=== PATIENT | female | born 2000 | race Caucasian/White ===

== ENCOUNTER 2019-10-08 16:47 | Emergency (ER) | payer OTHER, SELFPAY ==
--- NOTE | ~2019-10-08 | CT_ITS ---
EXAMINATION: CT abdomen pelvis w con DATE: 10/08/2019 18:44 INDICATION: Right lower quadrant abdominal pain. TECHNIQUE: Computed tomography (CT) of the abdomen and pelvis was performed with 100 mL Omnipaque 350 intravenous contrast. Automated exposure control and iterative reconstruction technique were employe d. The dose-length product was 230.10 mGy-cm. COMPARISON: None. FINDINGS: The visualized portions of the lung bases are clear without pneumonia or pleural effusion. The heart size is normal. No pericardial effusion. The liver, gallbladder, spleen, pancreas, adrenal glands, and right kidney are normal. There is a 1.3 cm cyst in left kidney. There are no dilated loop s of bowel. The appendix is normal. There are no pathologically enlarged lymph nodes. There is a smal l volume of pelvic ascites. There is a 1.6 cm corpus luteum cyst in right ovary. The bones are unrema rkable. IMPRESSION: 1. Small volume of pelvic ascites. Reviewed, dictated and finalized at location A.
[2019-10-08 17:05] VITALS: BP 127/81; PULSE 84; RESP 16; TEMP 36.8; O2SAT 100
[2019-10-08] MEDS: SODIUM CHLORIDE 0.9% IV 1,000 ML 999 ML IV CONT (17:29)
[2019-10-08] MEDS: ONDANSETRON INJ 4 MG/2 ML VIAL IV PUSH (17:30)
[2019-10-08 17:39] LABS: Basophils Absolute Auto 0.1 K/mm3 (0.0-0.1); Basophils Percent Auto 0.7 % (0.2-1.2); Eosinophils Absolute Auto 0.1 K/mm3 (0-0.3); Eosinophils Percent Auto 1.2 % (0-4.4); Hematocrit 47.5 % (37.0-47.0); Hemoglobin 16.2 g/dL (12.0-15.0); Immature Granulocyte Absolute 0.02 K/mm3 (0.00-0.031); Immature Granulocyte Percent A 0.3 % (0-0.5); Lymphocytes Absolute Auto 2.88 K/mm3 (0.9-3.2); Lymphocytes Percent Auto 39.7 % (18.3-44.2); Mean Corpuscular HGB Conc 34.1 g/dl (32-36); Mean Corpuscular Hemoglobin 31.2 pg (26-34); Mean Corpuscular Volume 91.3 fl (80-100); Monocytes Absolute Auto 0.6 K/mm3 (0.1-0.6); Monocytes Percent Auto 7.6 % (2.6-8.5); Neutrophils Absolute Auto 3.7 K/mm3 (1.3-6.7); Neutrophils Percent Auto 50.5 % (45.5-73.1); Platelet Count Result 361 k/mm3 (150-375); Red Cell Distribution Width 12.3 % (11.5-14.5); White Blood Count 7.3 K/mm3 (4.5-10.0)
[2019-10-08 17:46] LABS: Add Urine Microscopic? YES; Appearance Urine Cloudy (Clear); Bacteria Urine Trace /hpf; Bilirubin Urine Negative (Negative); Blood Urine Negative (Negative); Color Urine Yellow (Yellow); Glucose Urine UA Negative (Negative); Ketones Urine Negative (Negative); Leukocyte Esterase Ur 2+ LEU/UL (Negative); Mucus Urine Rare /lpf; Nitrate Urine Negative (Negative); Protein Urine Negative (Negative); Specific Grav Ur 1.017 (1.001-1.035); Squamous Epithelial Cell Urine Many /hpf (Few); Urobilinogen Urine Negative mg/dL (<2.0)
[2019-10-08 17:51] LABS: Alanine Aminotransferase 11 U/L (4-35); Albumin Level 5.3 g/dL (3.5-5.1); Alkaline Phosphatase 53 U/L (38-126); Aspartate Amino Transferase 23 U/L (14-36); Blood Urea Nitrogen 11 mg/dL (7-17); Calcium 9.9 mg/dL (8.4-10.2); Carbon Dioxide 26 mmol/L (22-30); Chloride 101 mmol/L (98-107); Estimated CRCL calculation 114 ml/min; Estimated Glomerular Filt Rate > 60; Glucose 89 mg/dL (65-105); Lipase 66 U/L (23-300); Potassium 3.7 mmol/L (3.4-5.0); Sodium 138 mmol/L (137-145)
--- NOTE | 2019-10-08 19:11 | ED.ABDPAIN ---
HPI - Abdominal Pain General Chief Complaint: Abdominal Pain Stated Complaint: pelvic pain Time Seen by Provider: 10/08/19 17:11 Source: patient and family Mode of arrival: ambulatory Limitations: no limitations History of Present Illness HPI narrative: 19-year-old with a history of ovarian cysts here with complaints of right lower abdominal pain for past few weeks. Patient states that she called her primary doctor who recommended to go to the emergency room to rule out appendicitis. Patient denies any fever or chills. No history of nausea or vomiting. She states she is presently on her menstrual period . She denies any urinary symptoms. MD elicited complaint: abdominal pain Pertinent past history: none Onset (ago): week(s) (2) Pain Consistency: constant Location: RLQ Quality: cramping Radiation: none Migration to: no migration Exacerbating factors: nothing Relieving factors: nothing Related Data Date of Last Menstrual Period: 10/08/19 Patient : No Home Medications Medication Instructions Recorded Confirmed No Home Medications 10/08/19 10/08/19 Allergies Allergy/AdvReac Type Severity Reaction Status Date / Time No Known Allergies Allergy Unverified 10/23/17 18:07 Review of Systems Review of Systems: All systems reviewed & are unremarkable except as noted in HPI and below Constitutional: Constitutional: Reports as per HPI Eyes: Eyes: Reports no additional eye complaints ENT: Reports system reviewed and no additional complaints, except as documented Cardiovascular: Cardiovascular: Reports no additional cardiovascular complaints Respiratory: Respiratory: Reports no additional respiratory complaints Gastrointestinal: Gastrointestinal: Reports as per HPI Musculoskeletal: Musculoskeletal: Reports no additional musculoskeletal complaints Integumentary/Breasts: Skin/Breast: Reports system reviewed and no additional complaints, except as docu Neurologic: Reports system reviewed and no additional complaints, except as documented Exam Narrative: Exam Narrative: GENERAL: Well-appearing, well-nourished, and in no acute distress. HEAD: Normocephalic, atraumatic. EYES: PERRLA and EOMI. ENT: Nares clear, no rhinorrhea or epistaxis. Mucous membranes moist. NECK: Supple. CHEST: Clear to auscultation. No respiratory distress. HEART: Regular rate and rhythm. No murmur heard. Normal peripheral pulses. ABDOMEN: Soft, mild tenderness in the RLQ , nondistended, normal active bowel sounds. EXTREMITIES: Normal range of motion. No edema. SKIN: Warm, dry, no rash. NEURO: No focal deficits. Alert and oriented x3. PSYCH: Normal mood and affect. Course Course Emergency Course: Patient had a vasovagal episode while she was getting blood drawn. I laid her flat give her a cold rag within few minutes she started feeling better. Also gave her a liter of fluid. I reviewed her lab work and CT findings with her mother as well. Patient states that she is feeling a lot better. I advised her to follow-up with her primary doctor. Vital Signs Vital signs: Vital Signs Temperature 36.8 C 10/08/19 17:05 Pulse Rate 84 10/08/19 17:05 Respiratory Rate 16 10/08/19 17:05 Blood Pressure 127/81 10/08/19 17:05 Pulse Oximetry 100 10/08/19 17:05 Temperature 36.8 C 10/08/19 17:05 Pulse Rate 84 10/08/19 17:05 Respiratory Rate 16 10/08/19 17:05 Blood Pressure 127/81 10/08/19 17:05 Pulse Oximetry 100 10/08/19 17:05 MDM - Abdominal Pain Differential Diagnosis Differential diagnosis: Likely abdominal pain, acute appendicitis, endometriosis and gastroenteritis Medical Records Attestation: I reviewed the patient's medical records. Lab Data Result diagrams: 10/08/19 17:32 10/08/19 17:32 Labs: Lab Results 10/08/19 10/08/19 10/08/19 Range/Units 17:32 17:32 17:32 WBC 7.3 (4.5-10.0) K/mm3 RBC 5.20 (4.2-5.4) M/mm3 Hgb 16.2 H (12.0-15.0) g/dL Hc
[2019-10-08 20:03] VITALS: BP 120/77; PULSE 70; RESP 20; TEMP 36.7; O2SAT 98
== END 2019-10-08 20:04 | disposition home or self-care (01) ==
PROVIDERS: Emergency Provider Family Medicine; PCP Family Medicine
DX: R10.31 Right lower quadrant pain (principal)
CPT/HCPCS: 36415; 74177; 80053; 81001; 81025; 83690; 85025; 96361; 96374; 99284; J2405; J7030; Q9967

== ENCOUNTER 2020-03-30 14:58 | Emergency (ER) | payer OTHER, SELFPAY ==
[2020-03-30 15:00] VITALS: BP 139/84; PULSE 59; RESP 16; TEMP 36.3; O2SAT 100; O2SAT 99
--- NOTE | 2020-03-30 15:07 | ED.NAVMDI ---
HPI - Nausea/Vomiting/Diarrhea General Chief complaint: Nausea/Vomiting/Diarrhea Stated complaint: covid +, n/v, Time Seen by Provider: 03/30/20 15:05 History of Present Illness HPI Narrative: 20 yo female pregant at unknown gestational age presents to the ED for nausea and vomiting. She has had nausea and vomting for the past 4 days. Tolerating small amounts of fluid. Associated with moderate intemittent pelvic pain. LMP 02/07/2020. No care to this point. No vaginal bleeding discharge, dysuria, fever. Related Data Allergies Allergy/AdvReac Type Severity Reaction Status Date / Time No Known Allergies Allergy Verified 03/30/20 14:59 Review of Systems Review of Systems: All systems reviewed & are unremarkable except as noted in HPI and below (HPI and below) Constitutional: Constitutional: Denies fever(s) Cardiovascular: Cardiovascular: Denies chest pain Respiratory: Respiratory: Denies dyspnea Gastrointestinal: Gastrointestinal: Reports abdominal pain, Denies diarrhea, Reports nausea and Reports vomiting Genitourinary: Genitourinary: Denies abnormal vaginal bleeding, Denies hematuria, Denies dysuria, Reports pelvic pain and Denies vaginal discharge Musculoskeletal: Musculoskeletal: Denies back pain Neurologic: Denies dizziness PMFSH Past Medical History Medical History (Updated 03/31/20 @ 20:15 by James Brown MD) Healthy female adult Social History Social History (Updated 03/31/20 @ 20:16 by James Brown MD) Smoking status: Never smoker Gender identity (if verbalized by the patient): Female Exam Const: General: healthy appearing, no acute distress and alert Orientation/consciousness: patient oriented x3 HENMT: Head: normal to inspection Neck: Neck: normal visual inspection and no lymphadenopathy Chest: Chest palpation & inspection: no tenderness Resp: Effort & Inspection: normal respiratory effort Auscultation: clear to auscultation bilaterally, no rales, no rhonchi and no wheezes Cardio: Jugular venous distension: no JVD Rate: regular rate Rhythm: regular rhythm Heart sounds: no murmurs GI: Inspection: non-distended GI Palp: Yes Soft to palpation and Yes Tenderness to palpation present (GI) (suprapubic) Skin: General skin exam: normal color Neuro: General: patient oriented x3 and moves all extremities Speech: normal speech Extrem: General: no edema Psych: Appearance: well kempt Affect: normal affect Course Vital Signs Vital signs: Vital Signs Temperature 36.3 C L 03/30/20 15:00 Pulse Rate 59 L 03/30/20 15:00 Respiratory Rate 16 03/30/20 15:00 Blood Pressure 139/84 03/30/20 15:00 Pulse Oximetry 100 03/30/20 15:00 Temperature 36.3 C L 03/30/20 15:00 Pulse Rate 76 03/30/20 16:55 Respiratory Rate 16 03/30/20 16:55 Blood Pressure 130/70 03/30/20 16:55 Pulse Oximetry 98 03/30/20 16:55 Procedures Other Procedure Procedure 1: Other Procedure: Bedside ultrasound IUP seen Approximately 9 weeks by appearance FHR 164 No free pelvic fluid MDM - Nausea/Vomiting/Diarrhea MDM Narrative Medical decision making narrative: Reassuring bedside ultrasound and lab work. After the ultrasound she said that she would prefer to be discharged so she can go home and rest. Medical Records Attestation: I reviewed the patient's medical records. Lab Data Attestation: I reviewed the patient's lab results. Result diagrams: 03/30/20 15:47 03/30/20 15:47 Labs: Lab Results 03/30/20 03/30/20 03/30/20 Range/Units 15:47 15:47 15:47 WBC 6.9 (4.5-10.0) K/mm3 RBC 4.61 (4.2-5.4) M/mm3 Hgb 14.4 (12.0-15.0) g/dL Hct 41.4 (37.0-47.0) % MCV 89.8 (80-100) fl MCH 31.2 (26-34) pg MCHC 34.8 (32-36) g/dl RDW 11.9 (11.5-14.5) % Plt Count 279 (150-375) k/mm3 MPV 10.0 (7.4-10.4) fl Immature Gran % (Auto) 0.3 (0-0.5) % Neut % (Auto) 59.2
[2020-03-30 15:54] LABS: Basophils Percent Auto 0.3 % (0.2-1.2); Eosinophils Percent Auto 0.1 % (0-4.4); Hematocrit 41.4 % (37.0-47.0); Hemoglobin 14.4 g/dL (12.0-15.0); Immature Granulocyte Absolute 0.02 K/mm3 (0.00-0.031); Immature Granulocyte Percent A 0.3 % (0-0.5); Lymphocytes Absolute Auto 2.18 K/mm3 (0.9-3.2); Lymphocytes Percent Auto 31.7 % (18.3-44.2); Mean Corpuscular HGB Conc 34.8 g/dl (32-36); Mean Corpuscular Hemoglobin 31.2 pg (26-34); Mean Corpuscular Volume 89.8 fl (80-100); Monocytes Absolute Auto 0.6 K/mm3 (0.1-0.6); Monocytes Percent Auto 8.4 % (2.6-8.5); Neutrophils Absolute Auto 4.1 K/mm3 (1.3-6.7); Neutrophils Percent Auto 59.2 % (45.5-73.1); Platelet Count Result 279 k/mm3 (150-375); Red Blood Count 4.61 M/mm3 (4.2-5.4); Red Cell Distribution Width 11.9 % (11.5-14.5); White Blood Count 6.9 K/mm3 (4.5-10.0)
[2020-03-30 16:05] LABS: Alanine Aminotransferase 32 U/L (4-35); Albumin Level 4.7 g/dL (3.5-5.1); Alkaline Phosphatase 57 U/L (38-126); Anion Gap 10 mmol/L (8-16); Aspartate Amino Transferase 35 U/L (14-36); Bilirubin,Total 0.6 mg/dL (0.2-1.3); Blood Urea Nitrogen 7 mg/dL (7-17); Calcium 9.4 mg/dL (8.4-10.2); Carbon Dioxide 25 mmol/L (22-30); Chloride 101 mmol/L (98-107); Estimated CRCL calculation 134 ml/min; Estimated Glomerular Filt Rate > 60; Glucose 95 mg/dL (65-105); Lipase 67 U/L (23-300); Potassium 3.4 mmol/L (3.4-5.0); Sodium 136 mmol/L (137-145)
[2020-03-30] MEDS: DEXTROSE 5%/0.45% SOD CHL 1,000 ML 1000 ML IV CONT (16:18)
[2020-03-30] MEDS: METOCLOPRAMIDE HCL INJ 10 MG/2 ML VIAL IV PUSH (16:18)
[2020-03-30 16:52] LABS: Add Urine Microscopic? YES; Amorphous Sediment Urine Moderate; Appearance Urine Cloudy (Clear); Bacteria Urine 3+ /hpf; Bilirubin Urine Negative (Negative); Blood Urine Negative (Negative); Color Urine Yellow (Yellow); Glucose Urine UA Negative (Negative); Ketones Urine 1+ mg/dL (Negative); Leukocyte Esterase Ur Negative LEU/UL (Negative); Mucus Urine Few /lpf; Nitrate Urine Negative (Negative); Protein Urine 1+ mg/dL (Negative); Specific Grav Ur 1.026 (1.001-1.035); Squamous Epithelial Cell Urine Many /hpf (Few); Urobilinogen Urine Negative mg/dL (<2.0); WBC Urine 0-3 /hpf
[2020-03-30 16:55] VITALS: BP 130/70; PULSE 76; RESP 16; O2SAT 98
== END 2020-03-30 16:55 | disposition home or self-care (01) ==
PROVIDERS: Emergency Medicine; Emergency Provider Emergency Medicine
DX: O98.511 Other viral diseases complicating pregnancy, first trimester (principal); U07.1 COVID-19; O21.9 Vomiting of pregnancy, unspecified; Z3A.09 9 weeks gestation of pregnancy
CPT/HCPCS: 36415; 80053; 81001; 81025; 83690; 85025; 96361; 96374; 96375; 99284; J0131; J2765

== ENCOUNTER 2020-05-13 13:09 | Emergency (ER) | payer OTHER, SELFPAY ==
[2020-05-13 13:11] VITALS: BP 111/83; PULSE 80; RESP 20; TEMP 36.5; O2SAT 100
[2020-05-13 15:30] VITALS: BP 110/76; PULSE 79; RESP 19; O2SAT 100
[2020-05-13 15:34] LABS: Basophils Percent Auto 0.2 % (0.2-1.2); Hematocrit 40.5 % (37.0-47.0); Hemoglobin 14.5 g/dL (12.0-15.0); Immature Granulocyte Absolute 0.06 K/mm3 (0.00-0.031); Immature Granulocyte Percent A 0.6 % (0-0.5); Lymphocytes Absolute Auto 1.35 K/mm3 (0.9-3.2); Mean Corpuscular HGB Conc 35.8 g/dl (32-36); Mean Corpuscular Hemoglobin 30.8 pg (26-34); Mean Platelet Volume 10.3 fl (7.4-10.4); Monocytes Absolute Auto 0.6 K/mm3 (0.1-0.6); Neutrophils Absolute Auto 8.3 K/mm3 (1.3-6.7); Neutrophils Percent Auto 80.2 % (45.5-73.1); Platelet Count Result 358 k/mm3 (150-375); Red Blood Count 4.71 M/mm3 (4.2-5.4); Red Cell Distribution Width 12.4 % (11.5-14.5); White Blood Count 10.4 K/mm3 (4.5-10.0)
[2020-05-13 15:38] LABS: Add Urine Microscopic? YES; Appearance Urine Clear (Clear); Bacteria Urine 1+ /hpf; Bilirubin Urine Negative (Negative); Blood Urine 1+ (Negative); Color Urine Amber (Yellow); Glucose Urine UA Negative (Negative); Ketones Urine 2+ mg/dL (Negative); Leukocyte Esterase Ur Negative LEU/UL (Negative); Mucus Urine Few /lpf; Nitrate Urine Negative (Negative); Protein Urine 2+ mg/dL (Negative); Squamous Epithelial Cell Urine Many /hpf (Few)
[2020-05-13 15:47] LABS: Alanine Aminotransferase 26 U/L (4-35); Albumin Level 4.5 g/dL (3.5-5.1); Alkaline Phosphatase 73 U/L (38-126); Anion Gap 17 mmol/L (8-16); Aspartate Amino Transferase 41 U/L (14-36); Bilirubin,Total 2.4 mg/dL (0.2-1.3); Blood Urea Nitrogen 9 mg/dL (7-17); Calcium 9.4 mg/dL (8.4-10.2); Carbon Dioxide 19 mmol/L (22-30); Chloride 97 mmol/L (98-107); Estimated CRCL calculation 134 ml/min; Estimated Glomerular Filt Rate > 60; Glucose 81 mg/dL (65-105); Lipase 49 U/L (23-300); Sodium 133 mmol/L (137-145)
--- NOTE | 2020-05-13 15:53 | ED.NAVMDI ---
HPI - Nausea/Vomiting/Diarrhea General Chief complaint: Nausea/Vomiting/Diarrhea Stated complaint: 14 wks , vomiting Time Seen by Provider: 05/13/20 13:43 Source: patient Mode of arrival: ambulatory Limitations: no limitations History of Present Illness HPI Narrative: A 20-year-old female who presents to the emergency department today is complaining of nausea and vomiting that has been progressing over the last couple of days. Patient notes that she has seen bile, noting that her vomit at times seems yellow. She denies seeing any blood in it. Patient does also endorse several episodes of diarrhea. She also notes that she is approximately 14 weeks . Patient denies any vaginal discharge or bleeding at this time. Related Data Home Medications Medication Instructions Recorded Confirmed [id number] fum-folic [id number] pkg PO 05/13/20 [Daily ] Allergies Allergy/AdvReac Type Severity Reaction Status Date / Time No Known Allergies Allergy Verified 05/13/20 13:14 Review of Systems Review of Systems: Narrative: CONSTITUTIONAL: Denies fever, chills, or sweats. EYES: Denies visual changes, redness, or discharge. ENT: Denies rhinorrhea, congestion, sore throat, or otalgia. CARDIOVASCULAR: Denies chest pain, palpitations, or edema. RESPIRATORY: Denies cough or dyspnea. GASTROINTESTINAL: Endorses nausea and vomiting and diarrhea. GENITOURINARY: Denies dysuria or hematuria. SKIN: Denies rash or itching. MUSCULOSKELETAL: Denies back pain, joint pain, or myalgia. NEUROLOGIC: Denies headache, numbness, dizziness, or weakness. PSYCHIATRIC: Denies anxiety or depression. [facility] [place] Social History Social History Gender identity (if verbalized by the patient): Female Exam Narrative: Exam Narrative: GENERAL: Well-appearing, well-nourished, and in no acute distress. HEAD: Normocephalic, atraumatic. EYES: PERRLA and EOMI. ENT: Nares clear, no rhinorrhea or epistaxis. Mucous membranes moist. NECK: Supple. No adenopathy or masses. No carotid bruits or JVD CHEST: Clear to auscultation. No respiratory distress. No wheezes rales or rhonchi HEART: Regular rate and rhythm. No murmur heard. Normal peripheral pulses. ABDOMEN: Soft, nontender, nondistended, normal active bowel sounds. EXTREMITIES: Normal range of motion. No edema. SKIN: Warm, dry, no rash. NEURO: No focal deficits. Alert and oriented x3. PSYCH: Normal mood and affect. Course Reevaluation(s) Reevaluation #1: Performed bedside ultrasound, good movement. Nursing staff was able to perform heart tones, they found to be 174. Patient receiving treatments, will await clinical improvement as she is just now getting IV fluids and antiemetics. Time: 16:16 Reevaluation #2: Patient resting comfortably at this time, she notes that she feels much better. She states that her nausea has nearly subsided. Patient states that she has felt better and is ready to go home. Time: 18:50 Vital Signs Vital signs: Vital Signs Temperature 36.5 C 05/13/20 13:11 Pulse Rate 80 05/13/20 13:11 Respiratory Rate 20 05/13/20 13:11 Blood Pressure 111/83 05/13/20 13:11 Pulse Oximetry 100 05/13/20 13:11 Temperature 36.5 C 05/13/20 13:11 Pulse Rate 90 05/13/20 16:53 Respiratory Rate 19 05/13/20 15:30 Blood Pressure 120/78 05/13/20 16:53 Pulse Oximetry 100 05/13/20 15:30 MDM - Nausea/Vomiting/Diarrhea MDM Narrative Medical decision making narrative: In brief this 20-year-old female is coming in with nausea and vomiting associated with . She is approximately 14 weeks. Patient was treated with symptomatic medications including IV fluids and Zofran. She noted that after that she was feeling much better. Patient's UA did show ketonuria however she was feeling better and able to tolerate p.o. Patient can go home and continue drinking there. I will give her further antiemeti
[2020-05-13] MEDS: ONDANSETRON INJ 4 MG/2 ML VIAL IV PUSH (15:54)
[2020-05-13] MEDS: LACTATED RINGERS 1,000 ML 999 ML IV CONT (15:54)
[2020-05-13] MEDS: POTASSIUM CHLORIDE 20 MEQ PACKET (FOR LIQUID) 40 MEQ PO (15:55)
[2020-05-13 16:52] VITALS: BP 108/70; PULSE 69
[2020-05-13 16:53] VITALS: BP 118/68; BP 120/78; PULSE 66; PULSE 90
[2020-05-13 17:45] VITALS: BP 107/68; PULSE 73; RESP 17; O2SAT 100
== END 2020-05-13 19:16 | disposition home or self-care (01) ==
PROVIDERS: Emergency Provider Emergency Medicine; PCP Nurse Practitioner Psychiatric/Mental Health
DX: O21.9 Vomiting of pregnancy, unspecified (principal); O99.282 Endocrine, nutritional and metabolic diseases complicating pregnancy, second trimester; E86.0 Dehydration; Z3A.14 14 weeks gestation of pregnancy
CPT/HCPCS: 36415; 80053; 81001; 83690; 85025; 87086; 96361; 96374; 99284; A9270; J2405; J7120

== ENCOUNTER 2020-05-27 09:31 | Outpatient (CLI) | payer OTHER, SELFPAY ==
--- NOTE | 2020-06-01 15:30 | WPDHOLTEREM ---
Holter/Event Monitor Holter/Event Monitor Date of procedure: 05/27/20 Procedure Type: 24 hour holter monitor Indications: Tachycardia Conclusion: 1. 24 hour holter monitor on 05/27/20. 2. Underlying rhythm is sinus rhythm. HR range 48-138 bpm; average HR 80 bpm. 3. There are 17 premature supraventricular complexes. No supraventricular tachycardia. 4. There are 298 premature ventricular complexes. No ventricular tachycardia. 5. No sinoatrial or atrioventricular blocks. No significant pauses greater than 2 seconds. 6. No symptoms available for correlation.
== END 2020-05-27 09:32 | disposition home or self-care (01) ==
PROVIDERS: PCP Family Medicine; Visit Provider Obstetrics & Gynecology
DX: R06.02 Shortness of breath (principal); R00.0 Tachycardia, unspecified
CPT/HCPCS: 93225; 93226

== ENCOUNTER 2020-08-17 14:25 | Outpatient (RCR) | payer OTHER, SELFPAY ==
[2020-08-17 15:53] LABS: Hematocrit 36.5 % (37.0-47.0); Hemoglobin 12.6 g/dL (12.0-15.0)
[2020-08-17 16:02] LABS: Glucose 1 Hour PP 50gm Dose 126 mg/dL
[2020-08-17 16:43] LABS: HIV 1/2 Ab P24 Ag Result Negative (Negative)
[2020-08-18 10:25] LABS: Rapid Plasma Reagin Non-Reactive (NonReactive)
[2020-08-19] MEDS: RHO(D) IMMUNE GLOBULIN 300 MCG/2 ML SYRINGE IM (12:22)
== END 2020-11-15 23:59 | disposition home or self-care (01) ==
LOC: ANHLAB 14:25
PROVIDERS: PCP Family Medicine; Visit Provider Obstetrics & Gynecology
DX: Z11.4 Encounter for screening for human immunodeficiency virus [HIV] (principal); Z29.13 Encounter for prophylactic Rho(D) immune globulin; O36.0130 Maternal care for anti-D [Rh] antibodies, third trimester, not applicable or unspecified; Z3A.00 Weeks of gestation of pregnancy not specified
CPT/HCPCS: 36415; 82947; 85014; 85018; 85461; 86592; 86703; 90384; 96372; G0432; J2790

== ENCOUNTER 2020-09-18 12:56 | Observation (INO) | payer OTHER, SELFPAY ==
[2020-09-18 13:05] VITALS: BP 127/85; PULSE 76; BMI 25.7
[2020-09-18 13:30] VITALS: BP 117/76; PULSE 74
--- NOTE | 2020-09-18 13:48 | OBADM ---
This patient, Macy Piña, admitted to the OB room OB Post 116 for observation. Patient/family oriented to hospital policies and general routines including ID bracelet, bed and alarms, visiting hours, pain management, procedures, bathroom and other care routines, personal items, smoking policy, room service/diet, and visiting hours. Patient/Family are encouraged to report perceived risks to care and to ask questions if they do not understand what they are told or what they should do.
[2020-09-18 14:01] VITALS: BP 112/74; PULSE 74
--- NOTE | 2020-09-20 07:56 | PM.OBTRLD ---
OB - Triage/Final Diagnosis Visit Information Comments/Additional reasons for admission: I have assessed the risk for this patient, Macy Piña, and determined that she would benefit from observation care. Evaluation Laboratory results: Laboratory Tests 09/18/20 13:39 KB Hemoglobin Negative Final Diagnosis (1) Antepartum bleeding, third trimester: Code(s): O46.93 - Antepartum hemorrhage, unspecified, third trimester Status: Acute
== END 2020-09-18 14:36 | disposition home or self-care (01) ==
LOC: ANHOBPP 09-19 12:38
PROVIDERS: Admitting Provider Obstetrics & Gynecology; PCP Family Medicine; Visit Provider Obstetrics & Gynecology
DX: O46.93 Antepartum hemorrhage, unspecified, third trimester (principal); Z3A.00 Weeks of gestation of pregnancy not specified
CPT/HCPCS: 36415; 85460; G0378; G0379

== ENCOUNTER 2020-10-07 16:24 | Outpatient (CLI) | payer OTHER, SELFPAY ==
[2020-10-07 16:46] VITALS: BP 117/74; PULSE 62
[2020-10-07 17:00] VITALS: BP 122/83; PULSE 55
[2020-10-07 17:06] LABS: Basophils Absolute Auto 0.1 K/mm3 (0.0-0.1); Basophils Percent Auto 0.8 % (0.2-1.2); Eosinophils Absolute Auto 0.1 K/mm3 (0-0.3); Eosinophils Percent Auto 1.5 % (0-4.4); Hematocrit 37.4 % (37.0-47.0); Hemoglobin 12.4 g/dL (12.0-15.0); Immature Granulocyte Absolute 0.13 K/mm3 (0.00-0.031); Immature Granulocyte Percent A 1.4 % (0-0.5); Lymphocytes Absolute Auto 1.97 K/mm3 (0.9-3.2); Lymphocytes Percent Auto 21.6 % (18.3-44.2); Mean Corpuscular HGB Conc 33.2 g/dl (32-36); Mean Corpuscular Volume 90.6 fl (80-100); Mean Platelet Volume 10.9 fl (7.4-10.4); Monocytes Absolute Auto 0.5 K/mm3 (0.1-0.6); Monocytes Percent Auto 5.6 % (2.6-8.5); Neutrophils Absolute Auto 6.3 K/mm3 (1.3-6.7); Neutrophils Percent Auto 69.1 % (45.5-73.1); Platelet Count Result 353 k/mm3 (150-375); Red Blood Count 4.13 M/mm3 (4.2-5.4); Red Cell Distribution Width 13.1 % (11.5-14.5); White Blood Count 9.1 K/mm3 (4.5-10.0)
[2020-10-07 17:15] VITALS: BP 117/78; PULSE 58
[2020-10-07 17:20] LABS: Alanine Aminotransferase 21 U/L (4-35); Albumin Level 3.6 g/dL (3.5-5.1); Alkaline Phosphatase 303 U/L (38-126); Anion Gap 8 mmol/L (8-16); Aspartate Amino Transferase 32 U/L (14-36); Bilirubin,Total 0.6 mg/dL (0.2-1.3); Blood Urea Nitrogen 7 mg/dL (7-17); Calcium 9.1 mg/dL (8.4-10.2); Carbon Dioxide 19 mmol/L (22-30); Chloride 107 mmol/L (98-107); Estimated Glomerular Filt Rate > 60; Glucose 88 mg/dL (65-110); Sodium 134 mmol/L (137-145); Uric Acid 4.3 mg/dL (2.5-7.5)
[2020-10-07 17:21] LABS: Creatinine Urine 35.5 mg/dL; Total Protein Urine Random 12 mg/dL; Ur Ttl Prot Creatinine Ratio 0.34 mg/mg (0-0.20)
[2020-10-07 17:30] VITALS: BP 116/86; PULSE 62
[2020-10-07 17:45] VITALS: BP 113/83; PULSE 55
[2020-10-13 16:10] LABS: Chenodeoxycholic Acid 13.9 umol/L (< OR = 3.9); Deoxycholic Acid 5.2 umol/L (< OR = 2.3); Total Bile Acids 52.1 umol/L (< OR = 8.3)
== END 2020-10-07 17:51 | disposition home or self-care (01) ==
LOC: ANHOBOP 16:29 → ANHLDR 16:32
PROVIDERS: Advanced Practice Midwife; PCP Family Medicine; Visit Provider Obstetrics & Gynecology
DX: O13.9 Gestational [pregnancy-induced] hypertension without significant proteinuria, unspecified trimester (principal); Z3A.00 Weeks of gestation of pregnancy not specified
CPT/HCPCS: 36415; 59025; 80053; 82542; 82570; 84156; 84550; 85025; 99199

== ENCOUNTER 2020-10-14 10:56 | Inpatient (IN) | payer OTHER, SELFPAY ==
[2020-10-14] VITALS (41 sets, daily range): BP systolic 106–138; BP diastolic 63–95; PULSE 59–103; TEMP 36.9–37.1; O2SAT 88–100; BMI 25.3
[2020-10-14 12:23] LABS: Basophils Absolute Auto 0.1 K/mm3 (0.0-0.1); Basophils Percent Auto 0.8 % (0.2-1.2); Eosinophils Absolute Auto 0.1 K/mm3 (0-0.3); Eosinophils Percent Auto 1.3 % (0-4.4); Hematocrit 37.5 % (37.0-47.0); Hemoglobin 12.2 g/dL (12.0-15.0); Immature Granulocyte Absolute 0.14 K/mm3 (0.00-0.031); Immature Granulocyte Percent A 1.7 % (0-0.5); Lymphocytes Absolute Auto 1.81 K/mm3 (0.9-3.2); Lymphocytes Percent Auto 21.6 % (18.3-44.2); Mean Corpuscular HGB Conc 32.5 g/dl (32-36); Mean Corpuscular Hemoglobin 29.6 pg (26-34); Mean Platelet Volume 10.9 fl (7.4-10.4); Monocytes Absolute Auto 0.5 K/mm3 (0.1-0.6); Monocytes Percent Auto 6.3 % (2.6-8.5); Neutrophils Absolute Auto 5.7 K/mm3 (1.3-6.7); Neutrophils Percent Auto 68.3 % (45.5-73.1); Platelet Count Result 345 k/mm3 (150-375); Red Blood Count 4.12 M/mm3 (4.2-5.4); Red Cell Distribution Width 13.2 % (11.5-14.5); White Blood Count 8.4 K/mm3 (4.5-10.0)
[2020-10-14] MEDS: DINOPROSTONE 10 MG VAG INSERT VAGINAL (12:25)
[2020-10-14 12:38] LABS: Alanine Aminotransferase 31 U/L (4-35); Albumin Level 3.6 g/dL (3.5-5.1); Alkaline Phosphatase 317 U/L (38-126); Anion Gap 10 mmol/L (8-16); Aspartate Amino Transferase 46 U/L (14-36); Bilirubin,Total 0.6 mg/dL (0.2-1.3); Blood Urea Nitrogen 11 mg/dL (7-17); Calcium 9.5 mg/dL (8.4-10.2); Carbon Dioxide 20 mmol/L (22-30); Chloride 105 mmol/L (98-107); Estimated Glomerular Filt Rate > 60; Glucose 106 mg/dL (65-110); Sodium 135 mmol/L (137-145)
[2020-10-14 12:41] LABS: Uric Acid 4.7 mg/dL (2.5-7.5)
--- NOTE | 2020-10-14 13:33 | LDADM ---
This patient, Macy Piña, was admitted to Labor/Delivery/Recovery 105 on 10/14/20 at 10:56. Plans for labor, pain management and were discussed with patient. Patient/family oriented to hospital policies and general routines including ID bracelet, bed and alarms, visiting hours, pain management, procedures, bathroom and other care routines, personal items, smoking policy, room service/diet and guest tray routines, security routines, and visiting hours. Patient/Family are encouraged to report perceived risks to care and to ask questions if they do not understand what they are told or what they should do. See OBIX for further documentation.
[2020-10-14] MEDS: AMPICILLIN 2 GM/NS 100 ML 2 GM/100 ML BAG IVPB (14:44)
[2020-10-14] MEDS: LACTATED RINGERS 1,000 ML 125 ML IV CONT (14:45)
[2020-10-14 15:59] LABS: Amphetamine Screen Urine Negative (Negative); Barbiturate Screen Urine Negative (Negative); Benzodiazepines Screen Urine Negative (Negative); Cannabinoid Screen Urine Positive (Negative); Cocaine Screen Urine Negative (Negative); Methadone Screen Urine Negative (Negative); Opiate Screen Urine Negative (Negative); Phencyclidine Screen Urine Negative (Negative)
[2020-10-14] MEDS: AMPICILLIN 1 GM/NS 50 ML 1 GM/50 ML BAG IVPB ×2 (19:08→23:14)
[2020-10-14] MEDS: fentaNYL CITRATE INJ (*CRX) 100 MCG/2 ML VIAL 50 MCG IV PUSH (22:13)
[2020-10-14] MEDS: fentaNYL CITRATE INJ (*CRX) 100 MCG/2 ML VIAL IV PUSH (23:11)
[2020-10-14] MEDS: OXYTOCIN 30 UNITS/NS 500 ML 30 UNITS/500 ML BAG 6 UNITS IV CONT (23:17)
[2020-10-15] VITALS (97 sets, daily range): BP systolic 96–138; BP diastolic 57–104; PULSE 51–104; RESP 16–18; TEMP 36.7–37.3; O2SAT 94–100
[2020-10-15] MEDS: fentaNYL CITRATE INJ (*CRX) 100 MCG/2 ML VIAL IV PUSH (00:35)
--- NOTE | 2020-10-15 01:14 | WPDANESEPPF ---
Anes - Initial Pre Proc Eval Procedure: labor epidural Date/Time: 10/15/20 01:14 Surgeon: Yamilex Schmidt MD Pre Op Diagnosis: labor pain Pre Op Diagnosis: Induction of Labor Patient Data Age: 20 Gender: F Height: 1.65 m Weight: 69 kg Last Vital Signs Temp 37.1 C 10/14/20 22:05 Pulse 72 10/15/20 01:13 BP 132/71 10/15/20 01:13 Pulse Ox 100 10/15/20 01:13 Allergies Allergy/AdvReac Type Severity Reaction Status Date / Time No Known Allergies Allergy Verified 05/16/20 14:01 Home Medications Medication Instructions Recorded Confirmed Type ondansetron HCl [Zofran] 4 mg PO Q6H PRN #10 tablet 03/30/20 Rx Daily pkg PO 05/13/20 History ondansetron 4 mg PO Q6H PRN #20 tablet 05/13/20 Rx Laboratory Tests 10/14/20 10/14/20 10/14/20 12:10 12:10 12:10 WBC 8.4 K/mm3 K/mm3 (4.5-10.0) RBC 4.12 M/mm3 L M/mm3 (4.2-5.4) Hgb 12.2 g/dL g/dL (12.0-15.0) Hct 37.5 % % (37.0-47.0) MCV 91.0 fl fl (80-100) MCH 29.6 pg pg (26-34) MCHC 32.5 g/dl g/dl (32-36) RDW 13.2 % % (11.5-14.5) Plt Count 345 k/mm3 k/mm3 (150-375) MPV 10.9 fl H fl (7.4-10.4) Immature Gran % (Auto) 1.7 % H % (0-0.5) Neut % (Auto) 68.3 % % (45.5-73.1) Lymph % (Auto) 21.6 % % (18.3-44.2) [place] % (Auto) 6.3 % % (2.6-8.5) Eos % (Auto) 1.3 % % (0-4.4) Baso % (Auto) 0.8 % % (0.2-1.2) Lymph # (Auto) 1.81 K/mm3 K/mm3 (0.9-3.2) [place] # (Auto) 0.5 K/mm3 K/mm3 (0.1-0.6) Eos # (Auto) 0.1 K/mm3 K/mm3 (0-0.3) Baso # (Auto) 0.1 K/mm3 K/mm3 (0.0-0.1) Abs Immat Gran (auto) 0.14 K/mm3 H K/mm3 (0.00-0.031) Absolute Neuts (auto) 5.7 K/mm3 K/mm3 (1.3-6.7) Absolute Nucleated RBC 0.0 K/mm3 K/mm3 (0.0-0.012) Nucleated RBC % 0.0 % % (0.0-0.2) Sodium Potassium Chloride Carbon Dioxide Anion Gap BUN Creatinine Estim Creat Clear Calc Estimated GFR Glucose Uric Acid 4.7 mg/dL mg/dL (2.5-7.5) Calcium Total Bilirubin AST ALT Alkaline Phosphatase Total Protein Albumin Urine Opiates Screen Urine Methadone Screen Ur Barbiturates Screen Ur Phencyclidine Scrn Ur Amphetamine Screen U Benzodiazepines Scrn Urine Cocaine Screen U Cannabinoids Screen RPR Pending Blood Type Antibody Screen Antibody Identification Antigen Identification BRADFORD, IgG Interpret BRADOFRD, Poly Interpret BRADFORD, Complement Interp 10/14/20 10/14/20 10/14/20 12:10 12:10 14:49 WBC RBC Hgb Hct MCV MCH MCHC RDW Plt Count MPV Immature Gran % (Auto) Neut % (Auto) Lymph % (Auto) [place] % (Auto) Eos % (Auto) Baso % (Auto) Lymph # (Auto) [place] # (Auto) Eos # (Auto) Baso # (Auto) Abs Immat Gran (auto) Absolute Neuts (auto) Absolute Nucleated RBC Nucleated RBC % Sodium 135 mmol/L L mmol/L (137-145) Potassium 4.0 mmol/L mmol/L (3.4-5.0) Chloride 105 mmol/L mmol/L (98-107) Carbon Dioxide 20 mmol/L L mmol/L (22-30) Anion Gap 10 mmol/L mmol/L (8-16) BUN 11 mg/dL mg/dL (7-17) Creatinine 0.60 mg/dL L mg/dL (0.7-1.0) Estim Creat Clear Calc Not Reportable
[2020-10-15] MEDS: LACTATED RINGERS 1,000 ML 125 ML IV CONT (03:39)
[2020-10-15] MEDS: AMPICILLIN 1 GM/NS 50 ML 1 GM/50 ML BAG IVPB (03:40)
[2020-10-15] MEDS: OXYTOCIN 30 UNITS/NS 500 ML 30 UNITS/500 ML BAG 125 UNITS IV CONT (05:19)
[2020-10-15] MEDS: ONDANSETRON INJ 4 MG/2 ML VIAL IV PUSH (07:14)
[2020-10-15] MEDS: WITCH HAZEL 40 PADS 1 PAD TOPICAL (08:09)
[2020-10-15] MEDS: IBUPROFEN 600 MG TABLET PO (15:26)
[2020-10-15] MEDS: DOCUSATE SODIUM 100 MG CAPSULE PO (16:41)
[2020-10-16 00:10] VITALS: BP 116/85; PULSE 64; RESP 16; TEMP 36.6
[2020-10-16] MEDS: IBUPROFEN 600 MG TABLET PO ×2 (05:35→17:05)
[2020-10-16 05:56] LABS: Hematocrit 34.1 % (37.0-47.0); Hemoglobin 10.8 g/dL (12.0-15.0)
--- NOTE | 2020-10-16 06:25 | PM.OBPRVD ---
OB - Delivery Note Procedure Delivery date: 10/15/20 Procedure: Cholestasis of events: Labor < 37 Weeks Intrapartal events: None Induction method: per cervidil protocol Delivery monitor: external FHT and external uterine Route of delivery: Episiotomy description: None Laceration Description: None Anesthesia type: Epidural Baby Date of : 10/16/20 Time of : 04:33 Weeks of gestation at delivery: 36 gender: Female Weight (pounds): 3 Weight (ounces): 14 presentation: vertex Placenta delivery description: Spontaneous Narrative: Called to room by RN as baby delivered in the bed. Infant vigorous. I clamped and cut cord. taken to warmer by nursery.
--- NOTE | 2020-10-16 06:57 | PM.OBPNVD ---
OB - PN: Subj Subjective Date/time seen: 10/16/20 06:57 Patient comments: no complaints baby status: doing well OB - PN: Obj Data Labs CBC & Chem 7: 10/16/20 05:33 10/14/20 12:10 Labs: Laboratory Results - last 24 hr 10/16/20 05:33 Hgb 10.8 L Hct 34.1 L OB - PN A/P Plan day: 1 Plan: routine care Time Spent With Patient Time: Total time spent is greater than 50% in coordination of care (as documented) at patient's floor/unit and/or counseling patient: Time with patient: less than 15 minutes Review of Systems Review of Systems: All systems reviewed & are unremarkable except as noted in HPI and below Exam Narrative: Exam Narrative: Fundus firm and vaginal flow controlled. No lower ext redness, warmth, or edema. Negative homans. Denies h/a, v/d or e/p. Reflexes normal. Const: General: comfortable Chest: Breast/axilla inspection: normal inspection of the breasts Resp: Effort & Inspection: normal respiratory effort Cardio: Rate: regular rate GI: GI Palp: Yes Soft to palpation Psych: Appearance: grossly normal Affect: normal affect Attitude: cooperative Thought content: Yes Normal thought content present Judgement: Good judgement present (Psych)
--- NOTE | 2020-10-16 07:57 | PM.OBPRVD ---
OB - Delivery Note Procedure Delivery date: 10/15/20 events: Labor < 37 Weeks Intrapartal events: None Laceration Description: None Specimen: Yes Anesthesia type: Epidural Narrative: Called to room. As I walked in the door baby delivered in the bed. I cut and clamped the cord and handed off to nursery staff. Baby Date of : 10/16/20 Time of : 04:33 Weeks of gestation at delivery: 36 gender: Female Weight (pounds): 3 Weight (ounces): 14 presentation: vertex Placenta delivery description: Spontaneous score one minute: 8 score five minutes: 9
[2020-10-16 09:00] VITALS: BP 102/58; PULSE 64; RESP 12; RESP 16; TEMP 36.8; O2SAT 100; O2SAT 97
[2020-10-16] MEDS: ACETAMINOPHEN 325 MG TABLET 650 MG PO (11:19)
[2020-10-16] MEDS: TETANUS,DIPHTHERIA,AC PERTUSSIS ADULT (0.5 ML) BOOSTRIX IM (11:20)
[2020-10-16] MEDS: DOCUSATE SODIUM 100 MG CAPSULE PO ×2 (11:20→17:05)
--- NOTE | 2020-10-16 12:28 | PCCCNOTE ---
Addendum entered by KELLY Neal 10/17/20 09:44: Received Email notification that DCFS is not taking a report. Pt. denies any further needs. Original Note: Care Coordination Consult: Met with pt. today due to marijuana usage. This is pt.'s first child. FOB name is Jv. Pt. has supportive family and friends. Pt. has all necessary supplies for baby girl including a bassinet, car seat, clothing, and diapers. Pt. plans to bottle feed and was provided a care bag for home. Pt. plans on using WIC at discharge through the [place] office. Resources provided. Pt. reports she uses recreational marijuana maybe once a month. Denies a reliance on marijuana. Baby's meconium is pending at this time. Pt. denies any further needs. Did submit online DCFS report regarding recreational marijuana use, ID # [id number].
[2020-10-16] MEDS: RHO(D) IMMUNE GLOBULIN 300 MCG/2 ML SYRINGE IM (17:30)
[2020-10-16 18:30] VITALS: BP 117/83; PULSE 69; RESP 18; TEMP 36.8
[2020-10-16 19:00] VITALS: RESP 16
[2020-10-16 23:45] VITALS: BP 120/88; PULSE 56; RESP 16; TEMP 37.1
[2020-10-17] MEDS: IBUPROFEN 600 MG TABLET PO ×2 (00:47→13:21)
[2020-10-17] MEDS: ACETAMINOPHEN 325 MG TABLET 650 MG PO (03:26)
[2020-10-17 03:40] VITALS: BP 119/78; PULSE 61; RESP 18; TEMP 36.7
--- NOTE | 2020-10-17 08:04 | PM.OBPNVD ---
OB - PN: Subj Subjective Date/time seen: 10/17/20 08:04 Patient comments: no complaints baby status: doing well OB - PN: Obj Data Labs CBC & Chem 7: 10/16/20 05:33 10/14/20 12:10 Labs: Laboratory Results - last 24 hr 10/16/20 05:33 Blood Type A Negative Antibody Screen Positive Antibody Identification Cancelled Antigen Identification Cancelled BRADFORD, IgG Interpret Not Performed BRADFORD, Poly Interpret Negative BRADFORD, Complement Interp Not Performed Screen Negative Baby's Blood Type A pos Baby's BRADFORD Positive Doses of RhIg Required 1 OB - PN A/P Plan day: 2 Plan: routine care and discharge home (F/U in 1 week for bp check) Time Spent With Patient Time: Total time spent is greater than 50% in coordination of care (as documented) at patient's floor/unit and/or counseling patient: Time with patient: less than 15 minutes Review of Systems Review of Systems: All systems reviewed & are unremarkable except as noted in HPI and below Exam Narrative: Exam Narrative: Fundus firm and vaginal flow controlled. No lower ext redness, warmth, or edema. Negative homans. Denies h/a, v/d or e/p. Reflexes normal. Const: General: comfortable Chest: Breast/axilla inspection: normal inspection of the breasts Resp: Effort & Inspection: normal respiratory effort Cardio: Rate: regular rate GI: GI Palp: Yes Soft to palpation Psych: Appearance: grossly normal Affect: normal affect Attitude: cooperative Thought content: Yes Normal thought content present Judgement: Good judgement present (Psych)
[2020-10-17 08:10] VITALS: BP 122/83; PULSE 56; RESP 16; TEMP 36.6; O2SAT 99
[2020-10-17 09:41] LABS: Hematocrit 34.5 % (37.0-47.0); Hemoglobin 11.4 g/dL (12.0-15.0); Mean Corpuscular Hemoglobin 30.5 pg (26-34); Mean Corpuscular Volume 92.2 fl (80-100); Mean Platelet Volume 10.1 fl (7.4-10.4); Platelet Count Result 370 k/mm3 (150-375); Red Blood Count 3.74 M/mm3 (4.2-5.4); Red Cell Distribution Width 13.6 % (11.5-14.5); White Blood Count 7.8 K/mm3 (4.5-10.0)
[2020-10-17 09:43] LABS: Alanine Aminotransferase 52 U/L (4-35); Albumin Level 3.2 g/dL (3.5-5.1); Alkaline Phosphatase 273 U/L (38-126); Anion Gap 7 mmol/L (8-16); Aspartate Amino Transferase 69 U/L (14-36); Bilirubin,Total 0.3 mg/dL (0.2-1.3); Blood Urea Nitrogen 11 mg/dL (7-17); Calcium 8.5 mg/dL (8.4-10.2); Carbon Dioxide 22 mmol/L (22-30); Chloride 107 mmol/L (98-107); Estimated CRCL calculation 134 ml/min; Estimated Glomerular Filt Rate > 60; Glucose 100 mg/dL (65-110); Potassium 3.7 mmol/L (3.4-5.0); Sodium 136 mmol/L (137-145)
[2020-10-17 09:51] LABS: Rapid Plasma Reagin Non-Reactive (NonReactive)
[2020-10-17 12:03] VITALS: BP 113/71; PULSE 58; RESP 16; TEMP 37.6; O2SAT 98
[2020-10-17 15:05] VITALS: BP 124/86; PULSE 65; RESP 14; TEMP 36.2; O2SAT 99
[2020-10-17 20:10] VITALS: BP 130/90; PULSE 64; RESP 16; TEMP 36.7; O2SAT 99
[2020-10-17 23:45] VITALS: BP 122/84; PULSE 78; RESP 18; TEMP 37.2; O2SAT 100
[2020-10-18 04:15] VITALS: BP 123/85; PULSE 68; RESP 18; TEMP 36.9; O2SAT 98
[2020-10-18 05:13] LABS: Hematocrit 37.4 % (37.0-47.0); Hemoglobin 12.3 g/dL (12.0-15.0); Mean Corpuscular HGB Conc 32.9 g/dl (32-36); Mean Corpuscular Hemoglobin 29.6 pg (26-34); Mean Corpuscular Volume 90.1 fl (80-100); Platelet Count Result 448 k/mm3 (150-375); Red Blood Count 4.15 M/mm3 (4.2-5.4); Red Cell Distribution Width 13.2 % (11.5-14.5); White Blood Count 9.6 K/mm3 (4.5-10.0)
[2020-10-18 05:27] LABS: Alanine Aminotransferase 54 U/L (4-35); Albumin Level 3.6 g/dL (3.5-5.1); Alkaline Phosphatase 299 U/L (38-126); Anion Gap 9 mmol/L (8-16); Aspartate Amino Transferase 55 U/L (14-36); Bilirubin,Total 0.4 mg/dL (0.2-1.3); Blood Urea Nitrogen 11 mg/dL (7-17); Calcium 9.1 mg/dL (8.4-10.2); Carbon Dioxide 22 mmol/L (22-30); Chloride 104 mmol/L (98-107); Estimated CRCL calculation 134 ml/min; Estimated Glomerular Filt Rate > 60; Glucose 82 mg/dL (65-110); Potassium 3.7 mmol/L (3.4-5.0); Sodium 135 mmol/L (137-145)
--- NOTE | 2020-10-18 07:15 | PC.NURSE ---
Pt introductions made and plan of care discussed per post , pain management, bottle feeding daily care activities and pending discharge to home. PT received such instructions per one to one discussion, mom baby care guide, demonstration and will be continuing to educate pt through out this shift. pt and fob both recipients of such instructions and no barriers to learning identified. PT verbalized understanding of such care.
[2020-10-18] MEDS: IBUPROFEN 600 MG TABLET PO (08:25)
[2020-10-18] MEDS: DOCUSATE SODIUM 100 MG CAPSULE PO (08:25)
--- NOTE | 2020-10-18 08:27 | PM.OBPNVD ---
OB - PN: Subj Subjective Date/time seen: 10/18/20 08:27 Patient comments: no complaints baby status: doing well OB - PN: Obj Data Labs CBC & Chem 7: 10/18/20 04:21 10/18/20 04:21 Labs: Laboratory Results - last 24 hr 10/14/20 10/16/20 10/17/20 12:10 05:33 08:59 WBC RBC Hgb Hct MCV MCH MCHC RDW Plt Count MPV Sodium 136 L Potassium 3.7 Chloride 107 Carbon Dioxide 22 Anion Gap 7 L BUN 11 Creatinine 0.50 L Estim Creat Clear Calc 134 Estimated GFR > 60 Glucose 100 Calcium 8.5 Total Bilirubin 0.3 AST 69 H ALT 52 H Alkaline Phosphatase 273 H Total Protein 7.0 Albumin 3.2 L RPR Non-reactive Blood Type A Negative Antibody Screen Positive Antibody Identification Cancelled Antigen Identification Cancelled BRADFORD, Poly Interpret Negative Screen Negative Baby's Blood Type A pos Baby's BRADFORD Positive Doses of RhIg Required 1 10/17/20 10/18/20 10/18/20 09:01 04:21 04:21 WBC 7.8 9.6 RBC 3.74 L 4.15 L Hgb 11.4 L 12.3 Hct 34.5 L 37.4 MCV 92.2 90.1 MCH 30.5 29.6 MCHC 33.0 32.9 RDW 13.6 13.2 Plt Count 370 448 H MPV 10.1 10.0 Sodium 135 L Potassium 3.7 Chloride 104 Carbon Dioxide 22 Anion Gap 9 BUN 11 Creatinine 0.50 L Estim Creat Clear Calc 134 Estimated GFR > 60 Glucose 82 Calcium 9.1 Total Bilirubin 0.4 AST 55 H ALT 54 H Alkaline Phosphatase 299 H Total Protein 7.0 Albumin 3.6 RPR Blood Type Antibody Screen Antibody Identification Antigen Identification BRADFORD, Poly Interpret Screen Baby's Blood Type Baby's BRADFORD Doses of RhIg Required OB - PN A/P Plan day: 3 Plan: routine care and discharge home (F/U in 1 week for bp check) Comments: Plan 1 week follow up with labs. Time Spent With Patient Time: Total time spent is greater than 50% in coordination of care (as documented) at patient's floor/unit and/or counseling patient: Time with patient: less than 15 minutes Review of Systems Review of Systems: All systems reviewed & are unremarkable except as noted in HPI and below Exam Narrative: Exam Narrative: Fundus firm and vaginal flow controlled. No lower ext redness, warmth, or edema. Negative homans. Denies h/a, v/d or e/p. Reflexes normal. Const: General: comfortable Chest: Breast/axilla inspection: normal inspection of the breasts Resp: Effort & Inspection: normal respiratory effort Cardio: Rate: regular rate GI: GI Palp: Yes Soft to palpation Psych: Appearance: grossly normal Affect: normal affect Attitude: cooperative Thought content: Yes Normal thought content present Judgement: Good judgement present (Psych)
[2020-10-18 08:30] VITALS: PULSE 60; RESP 18; O2SAT 98
[2020-10-18 09:05] VITALS: BP 119/81; PULSE 60; RESP 18; TEMP 36.5; O2SAT 98
--- NOTE | 2020-10-18 14:00 | PC.NURSE ---
Pt received discharge instructions per protocol and verbalized understanding of such instructions
[2020-10-18] MEDS: MEASLES,MUMPS,RUBELLA VACCINE 0.5 ML VIAL SUB-Q (14:13)
--- NOTE | 2020-10-18 14:25 | PC.NURSE ---
Pt discharged to home ambulatory to waiting car accompanied by fob and infant. Follow up appts confirmed. Patient was given the opportunity to view the discharge video Mother & Baby Care, The First Two Weeks and to ask questions. Patient declined viewing the video and has been given the mother/baby guide for home reference.
[2020-10-19 11:37] VITALS: BP 116/87; PULSE 72; RESP 20; TEMP 36.5; O2SAT 99
--- NOTE | 2020-11-10 08:21 | P.DS_ITS ---
DS: Admitting Diagnosis Admitting Diagnosis Labor OB - DS: Summary OB Procedures : None OB Procedures Intrapartum: Spontaneous Vag Delivery OB Procedures: : None Time Spent with Patient Time attestation: Total time spent providing and/or coordinating discharge services: DS: Data Data Completed and Pending Completed studies during hospitalization: Pending at discharge 10/15/20 05:33 Surgical [PTH] Routine Discharge Plan Discharge Attending physician on discharge: Mona Arora Consulting providers: Zarina Ibrahim Discharging Clinician: Zarina Ibrahim Patient Disposition: Home, Self-Care Activity: pelvic rest Diet: as tolerated Discharge Instructions: Education: Mom and Baby Guide Given to: Mother Follow-Up: Call your delivering provider's office for an appointment to be seen in: 1 Week Mom and baby should come to the [facility] for the follow-up appointment. Appointment Date/Time: October 19, 2020 at 11:00 am What to expect at your follow-up visit: Blood Pressure Check Call [phone] if you are unable to keep your appointment time. BREAST CARE: * Wear a snug supportive bra. * For engorgement discomfort: Bottle Feeding: * May apply ice packs PERINEAL CARE: * Until bleeding stops, use your malachi bottle after urinating * Change your pad frequently throughout the day * You may take sitz baths several times a day (fill your bathtub with warm water and soak for 20 minutes.) Do NOT bathe in the water * No tub baths until seen by your physician - You may shower ACTIVITY: * Rest as much as possible. * Do not exercise or lift anything heavier than your baby (such as laundry or other children.) * Avoid stairs or driving as much as possible. * Do not put anything into the vagina. No douching, tampons, or sexual activity until seen by physician. NOTIFY PHYSICIAN IF YOU HAVE ANY QUESTIONS OR IF ANY OF THE FOLLOWING SYMPTOMS OCCUR: * If your perineum becomes red, swollen, or more painful than what you have experienced in the hospital. * If your vaginal bleeding becomes foul smelling. * If your vaginal bleeding becomes more heavy than a period or if your bleeding changes from pink to bright red. However, you may pass an occasional walnut- sized clot once or twice for the first week . * If you experience a sharp, shooting pain in you calves. * If you discover a hard, reddened area on your breast or if you experience flu- like symptoms. * If you have a fever of 100.4 or greater DIET: * Eat regular, well-balanced meals. * Drink plenty of fluids daily. If , drink to thirst. RTC in 1 week for bp check and labs (bile acids) Stand Alone Forms: General Discharge Information Follow-up/Referrals: Zarina Ibrahim CNM [Certified Nurse Photogrammetric Tech] - Discharge Medications: Continued Daily [phone] mg-mcg-mg Combo Pack PO RF: 0 Discontinued ondansetron 4 mg tablet,disintegrating 4 mg PO Q6H PRN (Reason: nausea and vomiting) Qty: 20 RF: 0 ondansetron HCl [Zofran] 4 mg tablet 4 mg PO Q6H PRN (Reason: nausea and vomiting) Qty: 10 RF: 0 Date of admission: 10/14/20 10:56 Primary Care Provider: Mona Arora Admitting Provider: Yamilex Schmidt Attending physician on admission: Yamilex Schmidt Condition: Stable
== END 2020-10-18 14:25 | disposition home or self-care (01) | DRG 560 ==
LOC: ANHLDR 11:07 → ANHOB2 10-15 09:23
PROVIDERS: Advanced Practice Midwife; Admitting Provider Obstetrics & Gynecology; PCP Advanced Practice Midwife; Visit Provider Obstetrics & Gynecology
DX: O26.62 Liver and biliary tract disorders in childbirth (principal); O36.5930 Maternal care for other known or suspected poor fetal growth, third trimester, not applicable or unspecified; O99.824 Streptococcus B carrier state complicating childbirth; O13.4 Gestational [pregnancy-induced] hypertension without significant proteinuria, complicating childbirth; Z3A.36 36 weeks gestation of pregnancy; Z37.0 Single live birth
CPT/HCPCS: 36415; 80053; 80307; 84112; 84550; 85014; 85018; 85025; 85027; 85461; 86592; 86850; 86880; 86900; 86901; 86902; 88307; 90384; 90710; 90715; A9270; J0290; J2405; J2590; J2790; J2795; J3010; J7120

== ENCOUNTER 2021-09-23 08:26 | Emergency (ER) | payer OTHER, SELFPAY ==
[2021-09-23 08:40] VITALS: BP 129/94; PULSE 82; RESP 20; TEMP 36.9; O2SAT 99
[2021-09-23 09:09] LABS: Appearance Urine Cloudy (Clear); Bilirubin Urine Negative (Negative); Color Urine Light Yellow (Yellow); Glucose Urine UA Negative (Negative); Ketones Urine Negative (Negative); Leukocyte Esterase Ur 1+ (Negative); Nitrate Urine Negative (Negative); Protein Urine Negative (Negative); Urobilinogen Urine 0.2 mg/dL (0.2-1.0); pH Urine 6.5 (5.0-8.0)
[2021-09-23 09:17] LABS: Add Urine Microscopic? YES; Bacteria Urine 2+ /hpf; Blood Urine Trace-Intact (Negative); RBC Urine None seen /hpf (0-2); Squamous Epithelial Cell Urine Many /hpf (Few)
[2021-09-23 09:38] LABS: SARS-CoV-2 RNA PCR Negative (Negative)
[2021-09-23 09:45] LABS: Influenza A QL RT-PCR Negative (Negative); Influenza B QL RT-PCR Negative (Negative)
--- NOTE | 2021-09-23 09:50 | ED.FEMALEGU ---
HPI - Female Genitourinary General Chief complaint: Upper Respiratory Infection Stated complaint: fever, nausea, vomiting, body aches Source: patient Mode of arrival: ambulatory Limitations: no limitations History of Present Illness HPI Narrative: This is a 21-year-old female who presents with body aches nasal congestion with no shortness of breath no fever chills no cough, is having dysuria with frequency with some suprapubic pressure with no nausea vomiting. MD elicited complaint: dysuria Severity: mild Female Urogenital Radiation: Suprapubic Related Data Home Medications Medication Instructions Recorded Confirmed medroxyprogesterone 150 mg/mL 1 ml IM DIRECTED 09/23/21 09/23/21 intramuscular suspension Allergies Allergy/AdvReac Type Severity Reaction Status Date / Time No Known Allergies Allergy Verified 05/16/20 14:01 Review of Systems Review of Systems: All systems reviewed & are unremarkable except as noted in HPI and below PMFSH Past Medical History Medical History Healthy female adult Family History Family History Father Acute myocardial infarction Hypertension Grandparent Colon cancer Grandparent Diabetes mellitus Social History Social History Smoking status: Never smoker Substance use: current Gender identity (if verbalized by the patient): Female Spiritual care concerns: No Exam Const: General: healthy appearing, no acute distress and alert HENMT: Head: normal to inspection Eyes: Conjunctivae: conjunctivae normal Pupils: Equal, round and reactive pupils present EOM: EOMs intact bilaterally Chest: Chest palpation & inspection: normal inspection of the chest Resp: Effort & Inspection: normal respiratory effort Cardio: Rate: regular rate Rhythm: regular rhythm GI: GI Palp: Yes Soft to palpation Auscultation: normal bowel sounds : General: Yes no CVA tenderness Other: Tender suprapubic area with palpation Back/Spine/Pelvis: Back: no CVA tenderness Skin: General skin exam: normal color Rashes: no rashes Wounds: no wounds Neuro: General: patient oriented x3 and moves all extremities Extrem: General: normal to inspection, no clubbing, cyanosis or edema and no pedal edema Psych: Appearance: grossly normal and well kempt Mental Status: mental status grossly normal Course Course Emergency Course: urinalysis and flu and COVID reviewed with patient Vital Signs Vital signs: Vital Signs Temperature 36.9 C 09/23/21 08:40 Pulse Rate 82 09/23/21 08:40 Respiratory Rate 20 09/23/21 08:40 Blood Pressure 129/94 H 09/23/21 08:40 Pulse Oximetry 99 09/23/21 08:40 Oxygen Delivery Room Air 09/23/21 08:40 Temperature 36.9 C 09/23/21 08:40 Pulse Rate 82 09/23/21 08:40 Respiratory Rate 20 09/23/21 08:40 Blood Pressure 129/94 H 09/23/21 08:40 Pulse Oximetry 99 09/23/21 08:40 Oxygen Delivery Room Air 09/23/21 08:40 MDM - Female Genitourinary Lab Data Labs: Lab Results 09/23/21 09/23/21 09/23/21 Range/Units 08:59 09:00 09:00 Urine Color Light yellow (Yellow) Urine Appearance Cloudy A (Clear) Urine pH 6.5 (5.0-8.0) Ur Specific [place] 1.020 (1.010-1.020) Urine Protein Negative (Negative) Urine Glucose (UA) Negative (Negative) Urine Ketones Negative (Negative) Ur Blood (Man) Trace-intact H (Negative) Urine Nitrate Negative (Negative) Urine Bilirubin Negative (Negative) Urine Urobilinogen 0.2 (0.2-1.0) mg/dL Ur Leukocyte Esterase 1+ H (Negative) Urine RBC None seen (0-2) /hpf Urine WBC 7-9 H (0-3) /hpf Ur Squamous Epith Cells Many H (Few) /hpf Urine Bacteria 2+ H (None) /hpf Influenza A (RT-PCR) Negative (Negative) Influenza B (RT-PCR) Neg
[2021-09-23 10:05] VITALS: BP 128/84; PULSE 84; RESP 20; TEMP 36.8; O2SAT 99
== END 2021-09-23 10:11 | disposition home or self-care (01) ==
PROVIDERS: Emergency Provider Emergency Medicine; PCP Family Medicine
DX: N30.00 Acute cystitis without hematuria (principal); Z20.822 Contact with and (suspected) exposure to COVID-19
CPT/HCPCS: 81001; 87502; 99283; C9803; U0003; U0005

== ENCOUNTER 2022-02-10 05:58 | Emergency (ER) | payer OTHER, SELFPAY ==
--- NOTE | ~2022-02-10 | CT_ITS ---
EXAMINATION: CT abdomen pelvis w con DATE: 02/10/2022 08:34 INDICATION: Abdominal pain TECHNIQUE: Computed tomography (CT) of the abdomen and pelvis was performed with 100 mL Omnipaque-350 intravenous contrast. Automated exposure control and iterative reconstruction technique were employe d. The dose-length product was 184.04 mGy-cm. COMPARISON: 10/08/2019 FINDINGS: Lung bases are clear. Visualized inferior heart is normal. No pericardial or pleural effusion. There are couple approximately 5 mm likely hypodense lesions in the liver which are too small to definitive ly characterize most likely hepatic cysts or hemangiomas. Small region of focal hepatic steatosis ninfa ng the ligamentum teres. Gallbladder, spleen, pancreas, bilateral adrenal glands and right kidney are normal. 1.2 cm cyst in a region of focal cortical scarring at the upper pole of the left kidney. Aj dder, anteverted uterus and bilateral adnexa are normal. Bowels including the appendix are normal. No free intraperitoneal gas or fluid. No pathologically enlarged abdominal or pelvic lymphadenopathy. B ones are unremarkable. IMPRESSION: 1. No acute intra-abdominal/pelvic process. Reviewed, dictated and finalized at location A. [employer]
--- NOTE | 2022-02-10 07:28 | ED.GENADULT ---
HPI - General Adult General Chief complaint: Nausea/Vomiting/Diarrhea Stated complaint: VOMITING Time Seen by Provider: 02/10/22 07:28 Source: patient History of Present Illness HPI narrative: 21 years old white female came to the emergency room by private car complaining of severe nausea, vomiting and diarrhea that started 5 AM. Her had similar symptoms few days ago. Denies any fever or chills. Related Data Home Medications Medication Instructions Recorded Confirmed medroxyprogesterone 150 mg/mL 1 ml IM DIRECTED 09/23/21 09/23/21 intramuscular suspension Allergies Allergy/AdvReac Type Severity Reaction Status Date / Time No Known Allergies Allergy Verified 02/10/22 07:16 Review of Systems Review of Systems: All systems reviewed & are unremarkable except as noted in HPI and below PMFSH Past Medical History Medical History Healthy female adult Family History Family History Father Acute myocardial infarction Hypertension Grandparent Colon cancer Grandparent Diabetes mellitus Social History Social History Smoking status: Never smoker Substance use: current Gender identity (if verbalized by the patient): Female Spiritual care concerns: No Exam Narrative: General appearance: Well-developed, well-nourished Skin: Normal color Head: Normocephalic, nontraumatic Eyes: Clear conjunctiva ENT: Oropharynx normal, ears normal, nose normal Neck: Supple, nontender Chest and respiratory: Airway patent, no respiratory distress, no accessory muscle use Heart: Regular rate/rhythm Abdomen: Soft, diffuse tenderness,, no organomegaly, hyperactive bowel sounds Vascular: Normal peripheral pulses, normal capillary refill. Musculoskeletal: Normal range of motion, nontender back Neurologic: Alert and oriented ?3, STEAM FITTER is normal as tested, no gross motor deficit Course Course Emergency Course: Viral gastroenteritis is my concern. Patient's had similar symptoms a few days prior to the onset of her symptoms which is consistent with viral gastroenteritis. Patient's symptoms are improving, was able to drink fluids prior to discharge. Vital Signs Vital signs: Vital Signs Pulse Rate 71 02/10/22 07:41 Respiratory Rate 18 02/10/22 07:41 Blood Pressure 115/84 02/10/22 07:41 Pulse Oximetry 100 02/10/22 07:41 Pulse Rate 71 02/10/22 07:41 Respiratory Rate 18 02/10/22 07:41 Blood Pressure 115/84 02/10/22 07:41 Pulse Oximetry 100 02/10/22 07:41 Medical Decision Making Vital Signs Vital Signs: Vital Signs Pulse Rate 71 02/10/22 07:41 Respiratory Rate 18 02/10/22 07:41 Blood Pressure 115/84 02/10/22 07:41 Pulse Oximetry 100 02/10/22 07:41 Pulse Rate 71 02/10/22 07:41 Respiratory Rate 18 02/10/22 07:41 Blood Pressure 115/84 02/10/22 07:41 Pulse Oximetry 100 02/10/22 07:41 Lab Data Result diagrams: 02/10/22 06:54 02/10/22 06:54 Labs: Lab Results 02/10/22 02/10/22 02/10/22 Range/Units 06:54 06:54 06:56 WBC 12.2 H (4.5-10.0) K/mm3 RBC 4.56 (4.2-5.4) M/mm3 Hgb 14.1 (12.0-15.0) g/dL Hct 42.4 (37.0-47.0) % MCV 93.0 (80-100) fl MCH 30.9 (26-34) pg MCHC 33.3 (32-36) g/dl RDW 12.1 (11.5-14.5) % Plt Count 277 (150-375) k/mm3 MPV 11.1 H (7.4-10.4) fl Immature Gran % (Auto) 0.4 (0-0.5) % Neut % (Auto) 93.5 H (45.5-73.1) % Lymph % (Auto) 3.0 L (18.3-44.2) % [place] % (Auto) 2.8 (2.6-8.5) % Eos
[2022-02-10] MEDS: ONDANSETRON INJ 4 MG/2 ML VIAL IV PUSH (07:34)
[2022-02-10] MEDS: SODIUM CHLORIDE 0.9% IV 2,000 ML 999 ML IV CONT (07:36)
[2022-02-10 07:41] VITALS: BP 115/84; PULSE 71; RESP 18; O2SAT 100
[2022-02-10 08:01] LABS: Basophils Percent Auto 0.2 % (0.2-1.2); Eosinophils Percent Auto 0.1 % (0-4.4); Hematocrit 42.4 % (37.0-47.0); Hemoglobin 14.1 g/dL (12.0-15.0); Immature Granulocyte Absolute 0.05 K/mm3 (0.00-0.031); Immature Granulocyte Percent A 0.4 % (0-0.5); Lymphocytes Absolute Auto 0.36 K/mm3 (0.9-3.2); Mean Corpuscular HGB Conc 33.3 g/dl (32-36); Mean Corpuscular Hemoglobin 30.9 pg (26-34); Mean Platelet Volume 11.1 fl (7.4-10.4); Monocytes Absolute Auto 0.3 K/mm3 (0.1-0.6); Monocytes Percent Auto 2.8 % (2.6-8.5); Neutrophils Absolute Auto 11.4 K/mm3 (1.3-6.7); Neutrophils Percent Auto 93.5 % (45.5-73.1); Platelet Count Result 277 k/mm3 (150-375); Red Blood Count 4.56 M/mm3 (4.2-5.4); Red Cell Distribution Width 12.1 % (11.5-14.5); White Blood Count 12.2 K/mm3 (4.5-10.0)
[2022-02-10 08:02] LABS: Appearance Urine Slightly Cloudy (Clear); Bilirubin Urine Negative (Negative); Blood Urine Negative (Negative); Color Urine Yellow (Yellow); Glucose Urine UA Negative (Negative); Ketones Urine 2+ mg/dL (Negative); Leukocyte Esterase Ur Negative LEU/UL (Negative); Nitrate Urine Negative (Negative); Protein Urine 1+ mg/dL (Negative); Specific Grav Ur 1.015 (1.001-1.035); Urobilinogen Urine 0.2 mg/dL (<2.0); pH Urine >=9.0 (5.0-9.0)
[2022-02-10 08:05] LABS: Bacteria Urine Trace /hpf; Mucus Urine Rare /lpf; Squamous Epithelial Cell Urine Many /hpf (Few); WBC Urine 0-3 /hpf
[2022-02-10 08:07] LABS: Add Urine Microscopic? YES
[2022-02-10 08:13] LABS: Alanine Aminotransferase 28 U/L (6-35); Albumin Level 4.7 g/dL (3.5-5.1); Alkaline Phosphatase 63 U/L (38-126); Anion Gap 10 mmol/L (8-16); Aspartate Amino Transferase 47 U/L (14-36); Bilirubin,Total 1.3 mg/dL (0.2-1.3); Blood Urea Nitrogen 11 mg/dL (7-17); Calcium 9.3 mg/dL (8.4-10.2); Carbon Dioxide 20 mmol/L (22-30); Chloride 108 mmol/L (98-107); Estimated Glomerular Filt Rate > 60; Glucose 140 mg/dL (65-110); Lipase 26 U/L (23-300); Sodium 138 mmol/L (137-145)
[2022-02-10 09:31] VITALS: BP 102/63; PULSE 67; RESP 20; O2SAT 99
== END 2022-02-10 09:33 | disposition home or self-care (01) ==
PROVIDERS: Emergency Medicine; Emergency Provider Emergency Medicine; PCP Family Medicine
DX: K52.9 Noninfective gastroenteritis and colitis, unspecified (principal)
CPT/HCPCS: 36415; 74177; 80053; 81001; 81025; 83690; 85025; 96361; 96374; 99284; J2405; J7030; Q9967

== ENCOUNTER 2022-02-10 12:10 | Emergency (ER) | payer OTHER, SELFPAY ==
--- NOTE | 2022-02-10 12:16 | PC.NURSE ---
pt states she is going to go home and take a nap. if she doesnt feel better she will come back
== END 2022-02-10 12:16 | disposition left against medical advice (07) ==
PROVIDERS: PCP Family Medicine
DX: Z53.21 Procedure and treatment not carried out due to patient leaving prior to being seen by health care provider (principal)
CPT/HCPCS: 99199

== ENCOUNTER 2022-06-11 09:48 | Emergency (ER) | payer OTHER, SELFPAY ==
[2022-06-11 10:05] VITALS: BP 122/70; PULSE 80; RESP 16; TEMP 36.8; O2SAT 100
--- NOTE | 2022-06-11 10:09 | ECG_ITS ---
Measurements Intervals [place] Rate: 71 P: 69 MT: 120 QRS: 8 QRSD: 91 T: 14 QT: 401 QTc: 436 Interpretive Statements SINUS RHYTHM DELAYED PRECORDIAL R/S TRANSITION NONSPECIFIC T-WAVE ABNORMALITY- ANTERIOR LEADS BORDERLINE ECG NO PREVIOUS ECG AVAILABLE FOR COMPARISON Electronically Signed On 06-11-2022 11:13:58 CDT by Jorgito Hernandez D.O.
[2022-06-11 11:24] VITALS: BP 112/85; BP 116/79; PULSE 79; PULSE 86
--- NOTE | 2022-06-11 11:27 | ED.NAVMDI ---
HPI - Nausea/Vomiting/Diarrhea General Chief complaint: Nausea/Vomiting/Diarrhea Stated complaint: N/V since last night Time Seen by Provider: 06/11/22 11:21 History of Present Illness HPI Narrative: Patient states she had been drinking last night, started having nausea, vomiting, and diarrhea, and some epigastric discomfort. Having difficulty keeping anything down. No fevers or chills. Had similar symptoms only when she was . Related Data Home Medications Medication Instructions Recorded Confirmed medroxyprogesterone 150 mg/mL 1 ml IM DIRECTED 09/23/21 09/23/21 intramuscular suspension Allergies Allergy/AdvReac Type Severity Reaction Status Date / Time No Known Allergies Allergy Verified 02/10/22 07:16 Review of Systems Review of Systems: CONST: No fever. HEENT: No sore throat C/V: No chest pain RESP: No cough GI: Reports abdominal pain, nausea, vomiting[, diarrhea] : No dysuria. M/S: No joint pain. SKIN: No rash. NEURO: [No headache or focal numbness or weakness] PSYCH: [No depression] [facility] Past Medical History Medical History Healthy female adult Family History Family History Father Acute myocardial infarction Hypertension Grandparent Colon cancer Grandparent Diabetes mellitus Social History Social History Smoking status: Never smoker Substance use: current Gender identity (if verbalized by the patient): Female Spiritual care concerns: No Exam Narrative: EXAMINATION OF ORGAN SYSTEMS/BODY AREAS: Constitutional: Vital signs per nursing GENERAL: Appears somewhat uncomfortable in bed but otherwise not ill appearing HEAD: Normal with no signs of head trauma. EYES: EOMI, conjunctiva normal ENT: Hearing grossly intact LUNGS: Nonlabored breathing. HEART: [Regular rate and rhythm] ABD: [Soft], [nontender to palpation] EXT: Normal range of motion SKIN: [No rashes or lesions.] NEURO: [Alert and oriented x 3. No gross focal sensory or strength deficits.] PSYCH: Normal affect Course Vital Signs Vital signs: Vital Signs Temperature 98.3 F 06/11/22 10:05 Pulse Rate 80 06/11/22 10:05 Respiratory Rate 16 06/11/22 10:05 Blood Pressure 122/70 06/11/22 10:05 Pulse Oximetry 100 06/11/22 10:05 Oxygen Delivery Room Air 06/11/22 10:05 Temperature 98.3 F 06/11/22 10:05 Pulse Rate 86 06/11/22 11:24 Respiratory Rate 16 06/11/22 10:05 Blood Pressure 112/85 06/11/22 11:24 Pulse Oximetry 100 06/11/22 10:05 Oxygen Delivery Room Air 06/11/22 10:05 MDM - Nausea/Vomiting/Diarrhea MDM Narrative Medical decision making narrative: Patient presenting with nausea, vomiting, diarrhea, and some epigastric discomfort, vital signs stable, on exam she has soft, nontender abdomen, I suspect likely gastroenteritis given her symptoms and benign exam, labs obtained and are unremarkable other than some ketones in urine, and what appears to be contaminated UA. She is given Reglan for nausea, and after that had improved, was given Maalox, Pepcid, Bentyl, on reevaluation is feeling much better, ready to go home. She will be given prescriptions for these medications and can always return for any further issues Lab Data 06/11/22 11:12 06/11/22 11:12 Labs: Lab Results 06/11/22 06/11/22 06/11/22 Range/Units 11:12 11:12 11:14 WBC 6.5 (4.5-10.0) K/mm3 RBC 4.55 (4.2-5.4) M/mm3 Hgb 14.1 (12.0-15.0) g/dL Hct 40.8 (37.0-47.0) % MCV 89.7 (80-100) fl MCH 31.0 (26-34) pg MCHC 34.6 (32-36) g/dl RDW 12.0 (11.5-14.5) % Plt Count 286 (150-375) k/mm3 MPV 9.7 (7.4-10.4) fl Immature Gran % (Auto) 0.3 (0-0.5) % Neut % (Auto) 80.7 H (45.5-73.1) % Lymph % (Auto) 13.8 L (18.3-44.2) % [place] % (Auto) 4.3 (2.6-8.5) % E
[2022-06-11 11:30] LABS: Basophils Percent Auto 0.3 % (0.2-1.2); Eosinophils Percent Auto 0.6 % (0-4.4); Hematocrit 40.8 % (37.0-47.0); Hemoglobin 14.1 g/dL (12.0-15.0); Immature Granulocyte Absolute 0.02 K/mm3 (0.00-0.031); Immature Granulocyte Percent A 0.3 % (0-0.5); Lymphocytes Percent Auto 13.8 % (18.3-44.2); Mean Corpuscular HGB Conc 34.6 g/dl (32-36); Mean Corpuscular Volume 89.7 fl (80-100); Mean Platelet Volume 9.7 fl (7.4-10.4); Monocytes Absolute Auto 0.3 K/mm3 (0.1-0.6); Monocytes Percent Auto 4.3 % (2.6-8.5); Neutrophils Absolute Auto 5.3 K/mm3 (1.3-6.7); Neutrophils Percent Auto 80.7 % (45.5-73.1); Platelet Count Result 286 k/mm3 (150-375); Red Blood Count 4.55 M/mm3 (4.2-5.4); White Blood Count 6.5 K/mm3 (4.5-10.0)
[2022-06-11] MEDS: METOCLOPRAMIDE HCL INJ 10 MG/2 ML VIAL IM (11:32)
[2022-06-11 11:46] LABS: Alanine Aminotransferase 16 U/L (6-35); Albumin Level 4.7 g/dL (3.5-5.1); Alkaline Phosphatase 70 U/L (38-126); Anion Gap 8 mmol/L (8-16); Aspartate Amino Transferase 21 U/L (14-36); Bilirubin,Total 1.5 mg/dL (0.2-1.3); Blood Urea Nitrogen 9 mg/dL (7-17); Calcium 8.9 mg/dL (8.4-10.2); Carbon Dioxide 26 mmol/L (22-30); Chloride 102 mmol/L (98-107); Estimated CRCL calculation 106 ml/min; Estimated Glomerular Filt Rate > 60; Glucose 100 mg/dL (65-110); Lipase 34 U/L (23-300); Potassium 3.4 mmol/L (3.4-5.0); Sodium 136 mmol/L (137-145)
[2022-06-11 12:07] LABS: Appearance Urine Cloudy (Clear); Bacteria Urine None Seen /hpf; Bilirubin Urine Negative (Negative); Blood Urine Negative (Negative); Color Urine Dark Yellow (Yellow); Glucose Urine UA Negative (Negative); Ketones Urine 1+ mg/dL (Negative); Leukocyte Esterase Ur Trace LEU/UL (Negative); Need Manual Microscopic Reviewed; Nitrate Urine Negative (Negative); Non Pathogenic Casts 0-2; Protein Urine 1+ mg/dL (Negative); Specific Grav Ur 1.028 (1.001-1.035); Squamous Epithelial Cell Urine Many /hpf (Few); WBC Urine 0-5 /hpf
[2022-06-11 12:18] LABS: Add Urine Microscopic? YES
[2022-06-11] MEDS: FAMOTIDINE 20 MG TABLET PO (12:26)
[2022-06-11] MEDS: DICYCLOMINE HCL 10 MG CAPSULE 20 MG PO (12:26)
[2022-06-11] MEDS: MAG HYDROX/AL HYDROX/SIMETH 30 ML UDC PO (12:26)
== END 2022-06-11 12:57 | disposition home or self-care (01) ==
PROVIDERS: Emergency Provider Emergency Medicine; PCP Family Medicine
DX: R11.2 Nausea with vomiting, unspecified (principal); R19.7 Diarrhea, unspecified
CPT/HCPCS: 36415; 80053; 81001; 81025; 83690; 85025; 93005; 96372; 99283; A9270; J2765

== ENCOUNTER 2024-04-12 10:21 | Emergency (ER) | payer OTHER, SELFPAY ==
[2024-04-12 10:37] VITALS: BP 132/77; PULSE 60; RESP 14; TEMP 36.5; O2SAT 98
[2024-04-12 11:31] VITALS: BP 124/68; PULSE 56; RESP 20; TEMP 36.6; O2SAT 100
[2024-04-12 11:32] LABS: Basophils Percent Auto 0.6 % (0.2-1.2); Eosinophils Percent Auto 0.2 % (0-4.4); Hematocrit 37.7 % (37.0-47.0); Immature Granulocyte Absolute 0.03 K/mm3 (0.00-0.031); Immature Granulocyte Percent A 0.5 % (0-0.5); Lymphocytes Absolute Auto 1.62 K/mm3 (0.9-3.2); Mean Corpuscular HGB Conc 34.5 g/dl (32-36); Mean Corpuscular Hemoglobin 31.6 pg (26-34); Mean Corpuscular Volume 91.5 fl (80-100); Mean Platelet Volume 10.2 fl (7.4-10.4); Monocytes Absolute Auto 0.4 K/mm3 (0.1-0.6); Monocytes Percent Auto 6.6 % (2.6-8.5); Neutrophils Absolute Auto 4.4 K/mm3 (1.3-6.7); Neutrophils Percent Auto 67.1 % (45.5-73.1); Platelet Count Result 286 k/mm3 (150-375); Red Blood Count 4.12 M/mm3 (4.2-5.4); Red Cell Distribution Width 11.9 % (11.5-14.5); White Blood Count 6.5 K/mm3 (4.5-10.0)
[2024-04-12 11:41] VITALS: BP 130/86; PULSE 58; RESP 16; O2SAT 100
[2024-04-12 11:42] LABS: BEDSIDEPREGUCG Negative (Negative)
[2024-04-12 11:42] LABS: Alanine Aminotransferase 42 U/L (6-35); Albumin Level 4.4 g/dL (3.5-5.1); Alkaline Phosphatase 53 U/L (38-126); Anion Gap 8 mmol/L (4-12); Aspartate Amino Transferase 43 U/L (14-36); Bilirubin,Total 0.9 mg/dL (0.2-1.3); Blood Urea Nitrogen 6 mg/dL (7-17); Carbon Dioxide 25 mmol/L (22-30); Chloride 103 mmol/L (98-107); Estimated CRCL calculation 113 ml/min; Estimated Glomerular Filt Rate > 60; Glucose 102 mg/dL (65-110); Lipase 43 U/L (23-300); Potassium 3.7 mmol/L (3.4-5.0); Sodium 136 mmol/L (137-145)
[2024-04-12 11:44] LABS: Add Urine Microscopic? YES; Appearance Urine Clear (Clear); Bacteria Urine None Seen /hpf; Bilirubin Urine Negative (Negative); Blood Urine Negative (Negative); Color Urine Yellow (Yellow); Glucose Urine UA Negative (Negative); Ketones Urine Negative (Negative); Leukocyte Esterase Ur Trace LEU/UL (Negative); Nitrate Urine Negative (Negative); Non Pathogenic Casts 0-2; Protein Urine Negative (Negative); RBC Urine 0-2 /hpf (0-2); Specific Grav Ur 1.014 (1.001-1.035); Squamous Epithelial Cell Urine Moderate /hpf (Few); WBC Urine 0-5 /hpf (0-3)
[2024-04-12 11:53] LABS: SPREG INTERNAL CONTROL Positive; Serum Qual hCG Negative
[2024-04-12] MEDS: SODIUM CHLORIDE 0.9% IV 1,000 ML 999 ML IV CONT (11:58)
[2024-04-12] MEDS: ONDANSETRON INJ 4 MG/2 ML VIAL IV PUSH (11:58)
--- NOTE | 2024-04-12 12:17 | ED_ITS ---
HPI - General Adult General Chief complaint: Nausea/Vomiting/Diarrhea Stated complaint: vomiting,fever,bach aches Time Seen by Provider: 04/12/24 11:13 History of Present Illness HPI narrative: 24-year-old female presents to the emergency department for evaluation for approximately 5 days of persistent nausea vomiting. Patient states that her symptoms 1st developed when she was in [place]. Patient's significant other and child also had similar symptoms. Their symptoms have resolved. Patient did present to in infusion clinic and received a L of fluids 1 day and a abutment be infusion the 2nd day. Patient states she is still having persistent symptoms. Patient reports decreased p.o. intake. Related Data Home Medications ?Medication ?Instructions ?Recorded ?Confirmed ?Last Taken ?Type medroxyprogesterone 150 mg/mL 1 ml IM DIRECTED 09/23/21 09/23/21 Unknown History intramuscular suspension Allergies Allergy/AdvReac Type Severity Reaction Status Date / Time No Known Allergies Allergy Verified 04/12/24 10:22 Review of Systems 2 Review of Systems: All systems reviewed & are unremarkable except as noted in HPI and below PMFSH Past Medical History Medical History Healthy female adult Family History Family History Father Acute myocardial infarction Hypertension Grandparent Colon cancer Grandparent Diabetes mellitus Social History Social History Smoking status: Never smoker Substance use: current Gender identity (if verbalized by the patient): Female Spiritual care concerns: No Exam 2 Narrative: APPEARANCE: Well appearing, no pain, no distress, well-nourished. HEAD: normocephalic, atraumatic. EYES: PERRLA/EOMI, conjunctivae clear. NOSE: Normal no drainage EARS:TMS clear with good light reflex. THROAT: Pharynx clear, no exudate. NECK: Supple. No adenopathy, no masses. RESPIRATORY: Airway patent, respirations nonlabored. Clear to auscultation bilaterally, no rales, rhonchi, wheezing. CARDIOVASCULAR: Regular rate and rhythm without murmurs rubs or gallops. ABDOMINAL: Soft, nontender, nondistended, normal bowel sounds MUSCULOSKELETAL: Moves all extremities. Strength/ROM intact, No edema, No calf tenderness. NEURO: Alert. Cranial nerves II through XII intact. Good gait. Good coordination SKIN: Warm, dry. Normal Color Course Vital Signs Vital signs: Vital Signs Temperature 97.7 F 04/12/24 10:37 Pulse Rate 60 04/12/24 10:37 Respiratory Rate 14 04/12/24 10:37 Blood Pressure 132/77 04/12/24 10:37 Pulse Oximetry 98 04/12/24 10:37 Oxygen Delivery Room Air 04/12/24 10:37 Temperature 97.9 F 04/12/24 12:30 Pulse Rate 53 L 04/12/24 12:30 Respiratory Rate 13 04/12/24 12:30 Blood Pressure 124/68 04/12/24 12:30 Pulse Oximetry 100 04/12/24 12:30 Oxygen Delivery Room Air 04/12/24 11:41 Medical Decision Making MDM Narrative Medical decision making narrative: 24-year-old female presents emergency department for evaluation for persistent nausea vomiting. Patient has not been follow a clear liquid diet patient does not have any antiemetics at home. Patient is afebrile with no leukocytosis and hemoglobin of 13.0. Patient has no significant abnormalities on her CMP patient's creatinine is 0.55 which is similar to her baseline. UA was negative for infection. Patient was treated with IV fluids and Zofran. Patient's previous test was negative. Improved with IV rehydration and IV antiemetics. Patient was advised to follow a clear liquid diet for the next 1-3 days. Patient will be revised Zofran and Reglan for home. All questions concerns were addressed and patient was comfortable discharge plan. Differential Diagnosis Differential Diagnosis: Gastritis, colitis, diverticulitis, , influenza, RSV COVID, dehydration Vital Signs Vital Signs: Vital Signs Temperature 97.7 F 04/12/24 10:37 Pulse Rate 60 04/12/24 10:37 Respiratory Rate 14 04/12/24 10:37 Blood Pressure 132/77 04/12/24 10:37 Pulse Oximetry 98 04/12/24 10:37 Oxygen Delivery Room Air 04/12/24 10:37 Temperature 97.9 F 04/12/24 12:30 Pulse Rate 53 L 04/12/24 12:30 Respiratory Rate 13 04/12/24 12:30 Blood Pressure 124/68 04/12/24 12:30 Pulse Oximetry 100 04/12/24 12:30 Oxygen Delivery Room Air 04/12/24 11:41 Lab Data Lab results reviewed: Yes I reviewed the patient's lab results. 04/12/24 11:21 04/12/24 11:21 Labs: Lab Results 04/12/24 04/12/24 Range/Units 11:21 11:41 WBC 6.5 (4.5-10.0) K/mm3 RBC 4.12 L (4.2-5.4) M/mm3 Hgb 13.0 (12.0-15.0) g/dL Hct 37.7 (37.0-47.0) % MCV 91.5 (80-100) fl MCH 31.6 (26-34) pg MCHC 34.5 (32-36) g/dl RDW 11.9 (11.5-14.5) % Plt Count 286 (150-375) k/mm3 MPV 10.2 (7.4-10.4) fl Immature Gran % (Auto) 0.5 (0-0.5) % Neut % (Auto) 67.1 (45.5-73.1) % Lymph % (Auto) 25.0 (18.3-44.2) % [place] % (Auto) 6.6 (2.6-8.5) % Eos % (Auto) 0.2 (0-4.4) % Baso % (Auto) 0.6 (0.2-1.2) % Lymph # (Auto) 1.62 (0.9-3.2) K/mm3 [place] # (Auto) 0.4 (0.1-0.6) K/mm3 Eos # (Auto) 0.0 (0-0.3) K/mm3 Baso # (Auto) 0.0 (0.0-0.1) K/mm3 Abs Immat Gran (auto) 0.03 (0.00-0.031) K/mm3 Absolute Neuts (auto) 4.4 (1.3-6.7) K/mm3 Absolute Nucleated RBC 0.000 (0.0-0.012) K/mm3 Nucleated RBC % 0.0 (0.0-0.2) % Sodium 136 L (137-145) mmol/L Potassium 3.7 (3.4-5.0) mmol/L Chloride 103 (98-107) mmol/L Carbon Dioxide 25 (22-30) mmol/L Anion Gap 8 (4-12) mmol/L BUN 6 L (7-17) mg/dL Creatinine 0.55 L (0.7-1.0) mg/dL Estim Creat Clear Calc 113 ml/min Estimated GFR > 60 (59 - ) Glucose 102 (65-110) mg/dL Calcium 9.0 (8.4-10.2) mg/dL Total Bilirubin 0.9 (0.2-1.3) mg/dL AST 43 H (14-36) U/L ALT 42 H (6-35) U/L Alkaline Phosphatase 53 (38-126) U/L Total Protein 7.0 (6.3-8.2) g/dL Albumin 4.4 (3.5-5.1) g/dL Lipase 43 (23-300) U/L Serum HCG, Qual Negative Urine Color Yellow (Yellow) Urine Appearance Clear (Clear) Urine pH 8.0 (5.0-9.0) Ur Specific [place] 1.014 (1.001-1.035) Urine Protein Negative (Negative) mg/dL Urine Glucose (UA) Negative (Negative) mg/dL Urine Ketones Negative (Negative) mg/dL Ur Blood (Man) Negative (Negative) Urine Nitrate Negative (Negative) Urine Bilirubin Negative (Negative) Urine Urobilinogen 1.0 (<2.0) mg/dL Leukocyte Esterase Rfl Trace H (Negative) KELLEN/UL Urine RBC 0-2 (0-2) /hpf Urine WBC 0-5 (0-3) /hpf Ur Squamous Epith Cells Moderate (Few) /hpf Urine Bacteria None seen /hpf Urine Casts 0-2 POC Urine HCG, Qual Negative (Negative) Discharge Plan Discharge Clinical Impression: Nausea & vomiting Patient Disposition: Home, Self-Care Condition: Stable Instructions: Antibiotic Form, Clear Liquid Diet (ED), Acute Nausea and Vomiting (ED) Additional Instructions: Clear liquid diet for the next 1-3 days. Zofran as needed for nausea control. Have close follow-up with primary care physician. If you have any worsening symptoms then please call or return to the emergency department. Patient Language: Slovenian Prescriptions: New ondansetron 4 mg tablet,disintegrating 4 mg PO Q8H PRN (Reason: nausea and vomiting) Qty: 14 0RF metoclopramide HCl [Reglan] 10 mg tablet 10 mg PO Q6H PRN (Reason: nausea and vomiting) Qty: 14 0RF No Action medroxyprogesterone 150 mg/mL suspension 1 ml IM DIRECTED nitrofurantoin monohyd/m-cryst [Macrobid] 100 mg capsule 100 mg PO Q12H 7 Days Qty: 14 0RF Rx Instructions: must administer with a meal/food ondansetron HCl 4 mg tablet 4 mg PO Q4H Qty: 10 0RF Rx Instructions: 1st dose 1-2 hr before radiation famotidine 20 mg tablet 20 mg PO DAILY Qty: 30 0RF ondansetron 4 mg tablet,disintegrating 4 mg PO Q8H PRN (Reason: nausea and vomiting) Qty: 10 0RF Follow-up/Referrals: Marilu,MD Ahsan [Primary Care Provider] -
[2024-04-12 12:30] VITALS: BP 124/68; PULSE 53; RESP 13; TEMP 36.6; O2SAT 100
--- OUTSIDE RECORDS SUMMARY | 2024-04-16 10:15 | XMS_ITS | Data Portability ---
Author Organization [facility] Address [address] [place] [address] Care Team Providers Care Criminal Lawyer Name Role Phone KIYA FLYNN Primary Care Provider Assessment No assessment recorded. Plan of Treatment Reminders Order Date Submit Date Provider Last Modified By Organization Details Last Modified Time Details Appointments None recorded. Lab CT + NG RNA, PCR, unspecifie d specimen 2018 019 [facility], [address] [place] [address] 2, [place], [address], 9 06:34:08 Referral orthopedic referral 2018 019 rachel Guerrero MD, [address] [facility], [facility] [address], [address], 0 11:15:37 Procedures None recorded. Surgeries None recorded. Imaging US, abdomen, complete 2018 019 ATHENAFAX Not available 9 17:40:13 Medication Orders None recorded. Patient TargetsNo targets recorded. Patient Instructions Encounter Date Encounter Id Patient Instructions Last Modified By Organization Details Last Modified Time 10/06/2018 [id number] follow up in 1 week jnanney Not available 10/06/2018 17:33:46 10/08/2019 [id number] sent to ER vs pelvic pain jnanney Not available 10/08/2019 15:29:19 Reason for Referral Orthopedic Referral for Gang lion cyst of left dorsal wrist orthopedic service Referring Physician: Kiya Flynn, Family Medicine, Encounter Date: 03/06/2019 Results Created Date Observation Date Name Description Value Unit Range Abnormal Flag Note LastModifiedBy Organization Detail LastModifiedTime 10/07/19 19 10/09/2018 CT + NG RNA, PCR, unspe cifie d speci men chlamydia trachomatis, MANJU Negati ve negati ve Not Available [facility] ([facility] [address] [facility], [place], [address], 10/09/2018 06:41:50 10/07/19 19 10/09/2018 CT + NG RNA, PCR, unspe cifie d speci men neisseria gonorrhoeae, MANJU Negati ve negati ve Not Available [facility] ([facility]) [address] [facility], [place], [address], 10/09/2018 06:41:50 06/22/1906/21/2020 US, obste tric, mater nal evalu ation + anato my No observ ation record ed. [address] [facility] [address] [place] [address], [address], 07/21/2020 16:27:00 Result Notes None recorded. Problems No Known Problems Procedures Surgical History None recorded. Imaging Results Imaging Date Name Status LastModified by Organiz ation Details LastModified Time 06/21/2020 US, obstetric, maternal evaluation + anatomy completed [address] [facility] [address] [place] [address], [id number], 07/21/2020 16:27:00 Procedure Notes None recorded. Medical Equipment None Reported. Allergies No known drug allergies Medications Name Sig Start Date Stop Date Status Note LastModified by Organization Details LastModified Time ondansetron HCl 4 mg tablet 10/06 completed Not Available Not Available Not Available sulfamethoxazole 800 mg-trimethoprim 160 mg tablet 10/06 completed Not Available Not Available Not Available oseltamivir 75 mg capsule active Not Available Not Available N ot Available Estarylla 0.25 mg-35 mcg tablet active Not Available Not Avail able Not Available Vitals Date Recorded Body weight Provider Name an d Address Organization Details Last Updated DateTime 10/06/2018 [address]6903.18 g Cindy Argueta [place] [facility] 10/06/2018 16:54:02 Date Recorded Body height Body mass index (BMI) Percentile per age and sex Body mass index (BMI) Provider Name and Address Organization Details Last Updated DateTime 10/06/2018 167.64 cm 68 % 23.4 kg/m2 Cindy EllieFAY [facility] 10/06/2018 16:57:30 Date Recorded Body temperature Provider Name a nd Address Organization Details Last Updated DateTime 10/06/2018 98.9 [degF] Cindyelroy Argueta MA [facility] 10/06/2018 16:58:01 Date Recorded Oxygen saturation Oxygen saturation in Arterial blood by Pulse oximetry Provider Name and Address Organization Details Last Updated DateTime 10/06/2018 99 % 99 % Cindy Montoyaries [facility] 10/06/2018 16:58:03 Date Recorded Heart rate Provider Name an d Address Organization Details Last Updated DateTime 10/06/2018 61 /min Cindyelroy Argueta MA [facility] 09/22 16:58:05 Date Recorded Body height Provider Name an d Address Organization Details Last Updated DateTime 03/06/2019 167.64 cm Millicent [place] [facility] 03/06/2019 10:13:36 Date Recorded Body mass index (BMI) Percentile per age and sex Body mass index (BMI) Provider Name and Address Organization Details Last Updated DateTime 03/06/2019 55 % 22.1 kg/m2 Millicent [place] MA [facility] 03/06/2019 10:14:58 Date Recorded Body weight Provider Name an d Address Organization Details Last Updated DateTime 03/06/2019 89818.15 g Millicent [place] [facility] 03/06/2019 10:14:59 Date Recorded Oxygen saturation Oxygen saturation in Arterial blood by Pulse oximetry Provider Name and Address Organization Details Last Updated DateTime 03/06/2019 98 % 98 % Millicent [place] [facility] 03/06/2019 10:17:49 Date Recorded Heart rate Provider Name an d Address Organization Details Last Updated DateTime 03/06/2019 57 /min Millicent [place] MA [facility] 02/22 10:17:51 Date Recorded Systolic blood pressure Diastolic blood pressure Provider Name and Address Organization Details Last Updated DateTime 10/06/2018 118 mm[Hg] 64 mm[Hg] Cindy Argueta MA [facility] 10/06/2018 16:58:56 Date Recorded Systolic blood pressure Diastolic blood pressure Provider Name and Address Organization Details Last Updated DateTime 03/06/2019 96 mm[Hg] 72 mm[Hg] Millicent [place] MA [facility] 03/06/2019 10:16:54 Social History Question Answer Notes LastModified by Organizat ion Details LastModified Time Tobacco Smoking Status Never Smoker Vape FAY Ayala, [facility] 10/06/2018 16:55:48 What Is Your Level Of Alcohol Consumption? None Information not available 10/06/2018 What Is Your Level Of Caffeine Consumption? Moderate Caffine Free Soda Information not available 10/06/2018 What Type Of Diet Are You Following? REGULAR Information not available 10/06/2018 What Was The Date Of Your Most Recent Tobacco Screening? 10/06/2018 Information not available 10/16/2018 Has Tobacco Cessation Counseling Been Provided? No Information not available 10/06/2018 On What Date Was Tobacco Cessation Counseling Provided? 03/06/2019 Sdevriesma Answered No To The Tobacco Cessation Counseling Provided Question On 10/06/2018. [email or web address] Information not available 03/06/2019 Sex: Unknown Functional Status None recorded. Mental Status None recorded. Family History Relationship Description Onset Age of this Age Resolved Age Notes LastModified by Organization Details LastModified Time Father Heart disease [email or web address] Not available 10/06 16:55:20 Medical History Condition Response Coronary Artery Disease N Other N High Blood Pressure N Atrial Fibrillation N Kidney or Bladder Problems N Thyroid Problems N GI Problems N Depression N COPD N Blood Clots N Skin Problems N Anemia N Heart Attack ([place]) N Anxiety Disorder N Diabetes N Muscle, Joint, or Bone Problems N Seizures/Epilepsy N Acid Reflux (GERD) N Cancer N Stroke N Asthma N Allergies N High Cholesterol N Hepatitis N Liver Disease N Headaches N Heart Failure N Osteoporosis N Gynecological HistoryNo gynecological history recorded. Obstetrics History GPAL:G 0 P 0 0 0 0 Immunizations Vaccine Type Date Status Note Provider Nam e and Address Organization Details Recorded Time DTP 0 completed FAY Ayala [facility] 10/06/2018 17:30:27 DTP 0 completed FAY [place] [facility] 10/06/2018 17:30:31 DTP 1 [place] [facility] 10/06/2018 17:30:36 Hib, unspecified formulation 0 completed [place] [facility] 10/06/2018 17:30:44 Hib, unspecified formulation 0 completed [place] [facility] 10/06/2018 17:30:48 Hib, unspecified formulation 1 completed [place] [facility] 10/06/2018 17:30:52 Hep B, unspecified formulation 0 completed [place] [facility] 10/06/2018 17:31:02 Hep B, unspecified formulation 0 [place] [facility] 10/06/2018 17:31:06 Hep B, unspecified formulation 1 completed [place] [facility] 10/06/2018 17:31:12 MMR 1 [place] [facility] 10/06/2018 17:31:21 meningococcal ACWY, unspecified formulation 7 completed [place] [facility] 10/06/2018 17:31:33 polio, unspecified formulation 0 completed [place] [facility] 10/06/2018 17:31:43 polio, unspecified formulation 0 [place] [facility] 10/06/2018 17:31:50 polio, unspecified formulation 1 completed [place] [facility] 10/06/2018 17:31:54 Tdap 1 completed Cindy Argueta [place] est[place] [facility] 10/06/2018 17:32:05 varicella 6 completed [facility] 10/06/2018 17:32:13 Past Encounters Encounter ID Performer Location Encounter Start Date Encounter Closed Date Diagnosis/Indication Diagnosis SNOMED-CT Code Diagnosis ICD10 Code Diagnosis Note [id number] Kiya Flynn PA-C [facility] [address] [place] [address] 10/06/2018 16:42:14 10/06/2018 17:37:13 Venereal disease screening 382299246 Z11.3 Right uppe r quadrant pain 866054822 R10.11 [id number] Kiya Flynn PA-C [facility] [address] [place] [address] 03/06/2019 10:02:40 03/11/2019 11:18:42 Ganglion cyst of left dorsal wrist 2244227930 9438277 M67.987 [id number] Kiya Flynn PA-C [facility] [address] [place] [address] 10/08/2019 09:33:00 10/08/2019 15:38:30 Pain in pelvis 81748694 R10.2 Health Concerns Section Related Observation LastModified by Organization Detai ls LastModified Time None Recorded Concern Status LastModified by Organization Details LastModified Time None Recorded Advance Directives Directive None Recorded Payers Encounter Date Sequence Insurance Name Policy Number Policy Reis Covered Member ID Reis Member ID Guarantor Name 10/06/2018 1 [employer] [place] (MEDICAID HMO) [id number] [facility] [id number] [facility] 03/06/2019 1 [employer] [place] (MEDICAID HMO) [id number] [facility] [id number] [facility] 10/08/2019 1 [employer] [place] (MEDICAID HMO) [id number] [facility] [id number] [facility] Notes Date Note Type Note Provider Name and Address Organization Details Recorded Time 10/06/2018 text/html 1-2 months... began with sharp abdominal pains in diaphram. eats and has pain. fattier foods aggravate condition. 25 mins after consumption...if it is problematic she has no relief. lasts varying times.if she doesnt eat for a long time will throw up. has tried no otc meds. reports she has gerd. Kiya Flynn PA-C Attn: [address] [place], [address], [facility] 10/06/2018 17:35:40 03/06/2019 text/html left wrist ganglion cyst for years..getting painful... Kiya Flynn PA-C Attn: [address] [place], [address], [facility] 03/06/2019 10:32:41 10/08/2019 text/html still has gangli on cyst on left wrist...trouble finding a surgeon to remove it...also having rt side pelvic pain...last men cycle rt side ...very painful presently.. Kiya Flynn PA-C Attn: [address] [place], [address], [facility] 10/08/2019 15:31:55 OBGyn Episode No OBEpisode recorded.
--- OUTSIDE RECORDS SUMMARY | 2024-04-16 10:15 | XMS_ITS | Data Portability ---
Author Organization [facility] [place] Address [address] [place] [address] [address] [place] [address] Care Team Providers Care Staff Forester Name Role Phone [facility] Primary Care Provider Assessment Encounter Date Assessment Date Assessment LastModified by Organization Details LastModified Time 05/28/2022 05/28/2022 Annual gynecological exam performed. Patient will come back in a year unless there are new symptoms. [email or web address] Not available 05/28/2022 12:36:12 Plan of Treatment Reminders Order Date Submit Date Provider Last Modified By Organization Details Last Modified Time Details Appointments None recorded . Lab pregnanc y test, urine 2022 023 [email or web address] [address], [address], [place], [address], 13:14:47 Referral None recorded . Procedures None recorded . Surgeries None recorded . Imaging None recorded . Medication Orders Depo-Pro vera 150 mg/mL intramus cular suspensi on 2021 022 [email or web address] Not available 15:15:11 Twirla 120 mcg-30 mcg/24 hr transder mal patch 2021 022 archie [facility] #[id number], [address] [place], [place], [id number], 17:53:46 Twirla 120 mcg-30 mcg/24 hr transder mal patch 2021 022 SILVIA [facility] #[id number], [address], [place], [id number], 2 15:26:34 metronid azole 500 mg tablet 2022 023 archie [id number], [address], [place], [id number], 3 14:05:50 Patient TargetsNo targets recorded. Patient InstructionsNo instructions recorded. Reason for Referral None Reported. Results Created Date Observation Date Name Description Value Unit Range Abnormal Flag Note LastModifiedBy Organization Detail LastModifiedTime 07/11/1907/10/2022 CT/GC AND TRICH OMONA S VAGIN JASWINDER (RRNA ), SWAB chlamydia trachomatis, PCR Negati ve negati ve Not Available [facility] (Lab) [address], [place], [address], 07/11/2022 21:10:01 07/11/19 23 07/10/2022 CT/GC AND TRICH OMONA S VAGIN JASWINDER (RRNA ), SWAB neisseria gonorrhoeae, PCR Negati ve negati ve Not Available [facility] (Lab) [address], [place], [address], 07/11/2022 21:10:01 07/11/19 23 07/10/2022 CT/GC AND TRICH OMONA S VAGIN JASWINDER (RRNA ), SWAB trichomonas vaginalis ribosomal RNA (rrna) Negati ve negati ve Not Available [facility] (Lab) [address], [place], [address], 07/11/2022 21:10:01 07/11/19 23 07/10/2022 VAGIN ITIS/ VAGIN OSIS, DNA PROBE padmini sp. detection, direct probe Negati ve negati ve Not Available [facility] (Lab) [address], [place], [address], 07/11/2022 21:10:02 07/11/19 23 07/10/2022 VAGIN ITIS/ VAGIN OSIS, DNA PROBE gardnerella vag. detection, direct probe Negati ve negati ve Not Available [facility] (Lab) [address], [place], [address], 07/11/2022 21:10:02 07/11/19 23 07/10/2022 VAGIN ITIS/ VAGIN OSIS, DNA PROBE trichomonas vag. detection, direct probe Negati ve negati ve Not Available [facility] (Lab) [address], [place], [address], 07/11/2022 21:10:02 07/11/19 23 07/10/2022 pregn bhanu test, urine HCG negati ve Not Available [place] [address], [place], [address], 07/10/2022 13:14:22 Result Notes None recorded. Problems Name Problem SNOMED Code Status Onset Date Resolution Date Notes Provider Name and Address Organization Details Recorded Time Pregnanc y 27893301 Completed 202010/25/2020 Sparkle jara, [facility] 13:40:37 Corpus luteum cyst 432355395 Completed 2020 right Kayleigh Adame MD [address], [place], [address], [facility] 11:27:16 Tachycar bailee 0053354 Completed w/ SOB - [facility] cardiolo gy appt 06/22/20. BG F/U appt on 09/28- sxs resolved can f/u with PCP Sparkle jara, [facility] 13:40:31 RhD negative 972449897 Completed Rhogam Sparkle jara, [facility] 13:40:31 Alpha-fe toprotei n above referenc e range 453687733 Completed 2020 Genetic Counseli ng 06/21/20 0900 - MFM rec serial growth u/s no further f/u per MFM growth at 28wks & wkly NST & BPP at 32wks Sparkle jara, [facility] 1 13:40:31 growth restrict ion 99950483 Completed 2020 IUGR - MFM 09/19 <3% 7 u/s and NST MFM U/S & NST 10/14 10:30 Sparkle jara, [facility] 13:40:31 RhD negative 900676240 Active Rhogam Sparkle broussard [facility] 13:40:31 growth restrict ion 90342046 Active 2020 IUGR - MFM 09/19 <3% 10/04 u/s and NST MFM U/S & NST 10/14 10:30 Sparkle jara, [facility] 13:40:31 Alpha-fe toprotei n above referenc e range 824795522 Active 2020 Genetic Counseli ng 06/21/20 0900 - MFM rec serial growth u/s no further f/u per MFM growth at 28wks & wkly NST & BPP at 32wks Sparkle jara, [facility] 13:40:31 Notes:Rpt level II u/s [facility] 0 07/19 at 1:45PM MFM NST& U/S 10/14 at 10:30 Problem Notes None recorded. Procedures Surgical History Date Name Laterality Status Provider Name and Address Organization Details Recorded Time 1 NST completed Kayleigh Adame MD [address], [place], [address], [facility] 09/20/2020 11:27:48 01/13/202 1 Date of Last Pap Smear completed Britney Rosario [facility] 04/06/2020 09:50:06 0 procedure on wrist [facility] 09:54:46 Imaging Results None recorded. Procedure Notes None recorded. Medical Equipment None Reported. Allergies No known drug allergies Medications Name Sig Start Date Stop Date Status Note LastModified by Organization Details LastModified Time amoxicill in 500 mg capsule TAKE 1 CAPSULE BY MOUTH THREE TIMES DAILY UNTIL GONE active Not Available Not Available No t Available Augmentin 875 mg-125 mg tablet Take 1 tablet every 12 hours by oral route. 10/25 completed Not Available Not Available Not Available azithromy cornelia 250 mg tablet TK 2 TS PO ON DAY 1, THEN TK 1 T PO D FOR 4 DAYS 09/28 completed Not Available Not Available Not Available sulfameth oxazole 400 mg-trimet hoprim 80 mg tablet TK 1 T PO Q 12 H FOR 5 DAYS 04/06 completed Not Available Not Available Not Available Loestrin Fe 04/13 (28-Day) 1 mg-20 mcg (21)/75 mg (7) tablet TK 1 T PO D 04/06 completed Not Available Not Available Not Available hydrocodo ne 5 mg-acetam inophen 325 mg tablet TAKE 1 TO 2 TABLETS BY MOUTH EVERY 6 HOURS NEEDED FOR PAIN active Not Available Not Available No t Available ondansetr on HCl 4 mg tablet 04/06 completed Not Available Not Available Not Available metronida zole 500 mg tablet TAKE 1 TABLET BY MOUTH EVERY 12 HOURS FOR 7 DAYS active Not Available Not Available No t Available sulfameth oxazole 800 mg-trimet hoprim 160 mg tablet TK 1 T PO BID 04/06 completed Not Available Not Available Not Available ondansetr on 8 mg disintegr ating tablet DISSOLVE 1 TABLET ON THE TONGUE TWICE DAILY 09/01 completed Not Available Not Available Not Available ketorolac 10 mg tablet TK 1 T PO QID FOR 5 DAYS 04/06 completed Not Available Not Available Not Available famotidin e 20 mg tablet TAKE 1 TABLET BY MOUTH DAILY active Not Available Not Available No t Available Depo-Prov era 150 mg/mL intramusc ular suspensio n Inject 1 mL every 3 months by intramus cular route. 12/28 completed patient given Depo injectio n in right arm lot [id number] Exp 09/2023 and patient will be due next October 09 through Oct 23, 2021 Not Available Not Available Not Available cephalexi n 500 mg capsule TAKE 1 CAPSULE BY MOUTH THREE TIMES DAILY 12/28 completed Not Available Not Available Not Available oseltamiv ir 75 mg capsule TK 1 C BID 04/06 completed Not Available Not Available Not Available mirtazapi ne 15 mg tablet TAKE 1 TABLET BY MOUTH AT BEDTIME active Not Available Not Available No t Available ondansetr on 4 mg disintegr ating tablet DISSOLVE 1 TABLET ON THE TONGUE EVERY 8 HOURS NEEDED FOR NAUSEA OR VOMITING active Not Available Not Available No t Available Depo-Prov era 150 mg/mL intramusc ular syringe Inject 1 mL every 3 months by intramus cular route. 09/28 completed [facility] [address]-45 1-79 EXP 08/23/19 26 LOT [id number] Not Available Not Available Not Available nitrofura ntoin monohydra te/macroc rystals 100 mg capsule TAKE 1 CAPSULE BY MOUTH EVERY 12 HOURS FOR 7 DAYS TAKE WITH FOOD 09/28 completed Not Available Not Available Not Available 11/22 completed Not Available Not Available Not Available Twirla 120 mcg-30 mcg/24 hr transderm al patch Wear one patch per week for 3 weeks, followed by one patch free week active Not Available Not Available No t Available Vitals Date Recorded Body height Provider Name an d Address Organization Details Last Updated DateTime 07/24/2021 163.83 cm Britney Rosario [facility] 07/24/2021 18:07:47 Date Recorded Body height Body mass index (BMI) Body weight Systolic blood pressure Diastolic blood pressure Provider Name and Address Organization Details Last Updated DateTime 09/28/2021 163.83 cm 24.1 kg/m2 29714.99 g 122 mm[Hg] 82 mm[Hg] Alexandra Miner [facility] 17:26:13 Date Recorded Body height Body mass index (BMI) Body weight Systolic blood pressure Diastolic blood pressure Provider Name and Address Organization Details Last Updated DateTime 12/28/2021 163.83 cm 22.4 kg/m2 43269.35 g 116 mm[Hg] 76 mm[Hg] [facility] 2 15:15:03 Date Recorded Body height Body mass index (BMI) Body weight Systolic blood pressure Diastolic blood pressure Provider Name and Address Organization Details Last Updated DateTime 05/28/2022 163.83 cm 19.9 kg/m2 99617.46 g 130 mm[Hg] 75 mm[Hg] [facility] 3 12:36:26 Date Recorded Body height Systolic blood pressure Diastolic blood pressure Provider Name and Address Organization Details Last Updated DateTime 07/10/2022 163.83 cm 126 mm[Hg] 85 mm[Hg] [facility] 07/10/2022 12:45:25 Social History Question Answer Notes LastModified by Organizat ion Details LastModified Time What Is Your Level Of Alcohol Consumption? Occasional [email or web address] Information not available 04/06/2020 Are You Blind Or Do You Have Difficulty Seeing? No Information not available 05/28/2022 Are You Deaf Or Do You Have Serious Difficulty Hearing? No Information not available 05/28/2022 What Type Of Diet Are You Following? REGULAR [email or web address] Information not available 04/06/2020 Which Illicit Or Recreational Drugs Have You Used? Marijauna [email or web address] Information not available 04/06/2020 Do You Or Have You Ever Used E-cigarettes Or Vape? Former User Of Electronic Cigarettes [email or web address] Information not available 04/06/2020 What Was The Date Of Your Most Recent Tobacco Screening? 04/06/2020 [email or web address] Information not available 04/06/2020 Do You Or Have You Ever Used Smokeless Tobacco? Never Used Smokeless Tobacco [email or web address] Information not available 04/06/2020 Do You Use Any Illicit Or Recreational Drugs? Yes [email or web address] Information not available 04/06/2020 Have You Used IV Drugs? No [email or web address] Information not available 04/06/2020 Do You Or Have You Ever Used Any Other Forms Of Tobacco Or Nicotine? Yes [email or web address] Information not available 04/06/2020 Sex: Unknown Functional Status Question Answer Note LastModified by Organizat ion Details LastModified Time Do you have difficulty walking or climbing stairs? No Information not available 05/28/2022 Are you able to walk? YESWOREST Information not available 05/28/2022 Are you able to care for yourself? Yes Information not available 05/28/2022 Do you have difficulty dressing or bathing? No Information not available 05/28/2022 What is your exercise level? Occasional [email or web address] Information not available 04/06/2020 Mental Status None recorded. Family History Relationship Description Onset Age of this Age Resolved Age Notes LastModified by Organization Details LastModified Time Mother Anemia [email or web address] Not available 04/06/2020 09:51:06 Father Heart disease [email or web address] Not available 04/06 09:51:27 Father Hypertensive disorder [email or web address] Not available 04/06 09:52:00 Paternal Grandmother Heart disease [email or web address] Not available 04/06 09:51:27 Paternal Grandmother Hypertensive disorder Not available 04/06 09:52:00 Maternal Grandmother Hypertensive disorder [email or web address] Not available 04/06 09:52:00 Paternal Grandfather Heart disease Not available 04/06 09:52:15 Paternal Grandfather Malignant tumor of colon [email or web address] Not available 04/06 09:52:27 Medical History Condition Response Allergies (Food, seasonal, environmental ) N Other N Breast Cancer N Drug/Latex Allergies/Reactions N Blood Transfusion N Dermatologic Disorders N Lung Disease N Defects or Inherited Disease N Breast Problem N Gestational Diabetes N Hematologic disorders N Anesthesia Complications N History of STI N Deep Vein Thrombosis N Polycystic ovary syndrome N Anxiety Disorder N Autoimmune disease N Arthritis N Infertility N Polyps N Acid Reflux (GERD) N History of abnormal pap N Cancer N Stroke N Varicosities N Neurologic/Epilepsy N Endometriosis N High Cholesterol N Headaches N Fibromyalgia N Kidney Disease N Heart Problems N Kidney or Bladder Problems N Thyroid Problems N GI Problems N Eating Disorder N Anemia N Art (IVF or FET) N Psychiatric Illness N Ovarian Cancer N Diabetes N Pulmonary (TB, Asthma) N Hepatitis/Liver Disease N No Past Medical History N Eczema N Urinary Tract Infection N Abuse/Domestic Violence N Asthma N Trauma/Violence N Depression/ depression Y Heart Disease N Pre-Eclampsia N Hypertension N Osteoporosis N Thrombophilias N Gynecological History Statement/Question Response Abnormal Pap N Flow Moderate Date of LMP 05/17/2022 STIs/STDs N HPV Vaccine N Duration of Flow (days) 4 Current Control Method Patch Are cycles usually normal Y Sexually Active? Y Menses Monthly Y Age of first menstrual cycle 13 Date of Last Pap Smear 04/06/2020 Sexual Problems? N Desired Control Method Patch LMP Approximate Obstetrics History GPAL:G 1 P 0 1 0 1 Type Value Premature 1 Living 1 Total 1 Past Encounters Encounter ID Performer Location Encounter Start Date Encounter Closed Date Diagnosis/Indication Diagnosis SNOMED-CT Code Diagnosis ICD10 Code Diagnosis Note [id number] Mona Arora [facility] [address],[place] [address] 04/06/2020 09:23:01 04/06/2020 11:38:54 Amenorrhea 00506287 N91.2 Gynecologi c examination 25852361 Z01.419 [id number] [facility] [address],[place] [address] 04/06/2020 11:54:20 04/07/2020 08:04:32 [id number] Sudhir Schmidt MD [place] [address],[place] [address] 05/04/2020 14:03:06 05/04/2020 15:17:42 Routine care 996740643 Z34.01 [id number] Christina Alvarado [place] [address],[place] [address] 05/04/2020 14:03:41 05/04/2020 14:33:32 screening 912674377 Z36.82 [id number] Sudhir Schmidt MD [place] [address],[place] [address] 05/17/2020 17:19:17 05/18/2020 14:53:47 Tachycardia 6510696 R00.0 Dyspnea 104004361 R06.00 Panic attack 988483361 F 41.0 Mitral ilia ve regurgitation 67793726 I34.0 to obtain Holter monitor for the patient. To arrange for cardiology consult patient does have a echocardio gram for about a [facility] [id number] [facility] [address],[place] [address] 05/30/2020 11:06:42 05/30/2020 13:17:10 Routine care 748095469 Z34.92 [id number] Sudhir Schmidt MD [place] [address],[place] [address] 06/27/2020 14:11:26 06/27/2020 16:02:09 Routine care 106621138 Z34.01 [id number] Sudhir Schmidt MD [place] [address],[place] [address] 07/28/2020 12:29:06 07/28/2020 12:53:24 Routine care 587130413 Z34.01 [id number] Delaney Gill [facility] [address],[place] [address] 08/16/2020 12:04:49 08/16/2020 12:51:07 Abnormal hematologic finding on screening of mother 441010059 O28.0 Z3A.27 [id number] Kayleigh Adame MD [place] [address],[place] [address] 08/16/2020 12:05:11 08/16/2020 13:38:52 Routine care 089879982 Z34.02 [id number] Sudhir Schmidt MD [place] [address],[place] [address] 09/01/2020 12:22:36 09/01/2020 13:10:29 Routine care 650544840 Z34.01 [id number] [address],[place] [address] 09/15/2020 11:24:27 09/15/2020 12:47:55 Poor growth affecting management 019412520 O36.5999 [id number] Sudhir Schmidt MD [place] [address],[place] [address] 09/15/2020 11:26:09 09/15/2020 12:15:27 Routine care 707471478 Z34.01 [id number] [facility] [address],[place] [address] 09/15/2020 11:27:12 09/15/2020 12:00:12 Small for gestational age fetus 449918613 O36.5920 Z3A.31 [id number] [facility] [address],[place] [address] 09/20/2020 09:21:20 09/20/2020 10:18:36 Poor growth affecting management 612028855 O36.5999 [id number] Kayleigh Adame MD [place] [address],[place] [address] 09/20/2020 09:21:55 09/20/2020 12:02:13 growth restriction 22443791 O35.8XX9 [id number] Christina [facility] [address],[place] [address] 09/20/2020 10:05:48 09/20/2020 10:52:55 condition affecting obstetrical care of mother 526660797 O36.8330 Z3A.32 [id number] [facility] [address],[place] [address] 09/23/2020 12:21:01 09/23/2020 13:21:23 Poor growth affecting management 237063703 O36.5999 [id number] [facility] [address],[place] [address] 09/23/2020 12:59:51 09/23/2020 13:49:17 Abnormal heart rate 512756447 O36.8330 Z3A.33 [id number] [facility] [address],[place] [address] 09/27/2020 11:26:00 09/27/2020 12:08:03 Poor growth affecting management 621932130 O36.5999 [id number] Christina Alvarado [place] [address],[place] [address] 09/27/2020 11:26:13 09/27/2020 12:24:05 Poor growth affecting management 513953820 O36.5930 Z3A.33 [id number] Sudhir Schmidt MD [place] [address],[place] [address] 09/27/2020 11:26:25 09/29/2020 10:59:58 Routine care 630438367 Z34.01 [id number] [facility] [address],[place] [address] 09/30/2020 12:19:40 09/30/2020 13:31:02 growth restriction 02913497 O35.8XX9 [id number] Mona Arora [facility] [address],[place] [address] 10/07/2020 15:58:32 10/07/2020 16:47:00 Dental abscess 550721496 K04.7 Routine an tenatal care 950836854 Z34.91 [id number] [facility] [address],[place] [address] 10/07/2020 15:58:32 10/07/2020 16:47:00 growth restriction 81592385 O35.8XX9 [id number] [facility] [address],[place] [address] 10/11/2020 11:12:06 10/11/2020 12:33:14 Abnormal heart rate 932515455 O36.8330 [id number] [facility] [address],[place] [address] 10/11/2020 11:12:32 10/11/2020 12:00:40 growth restriction 25870291 O35.8XX9 [id number] Sudhir Schmidt MD [place] [address],[place] [address] 10/11/2020 11:12:43 10/12/2020 22:06:36 Routine care 474285022 Z34.01 [id number] [facility] [address],[place] [address] 10/25/2020 15:46:34 10/25/2020 17:57:37 -induced hypertension 8944992139 9100 O13.9 Pt doing well. PIH precaution s given. [id number] [facility] [address],[place] [address] 11/22/2020 14:00:38 11/22/2020 14:35:44 state 44451699 Z39.2 Continue to watch for signs/symp toms of post depression . Return one year from last pap smear for a well woman exam. BP slightly elevated. Pt will call Dr Michel to discuss. Patient received above instructio ns, and questions have been answered. If you have any questions please call or respond to this email. Patient was made aware of the patient portal and may obtain a paper copy of today's plan if desired Contracept ion care management 352186813 Z30.9 Discussed all options. Pt would like depo provera. Discussed risks including delayed return to fertility, abnormal bleeding, loss of bone density, and weight gain. Pt would like to proceed with injection. She will call us on the first day of her cycle to schedule injection. [id number] Marquita Hickman [place] [address],[place] [address] 11/25/2020 10:27:50 11/25/2020 11:26:33 Contraception care management 958916327 Z30.9 [id number] [facility] [address],[place] [address] 02/20/2021 14:07:49 02/20/2021 14:44:58 Contraception care management 043268196 Z30.9 [id number] Marquita Hickman [place] [address],[facility] [place] [address] 05/08/2021 10:56:56 05/08/2021 11:44:02 Contraception care management 182767385 Z30.9 [id number] Britney Rosario [place] [address],[place] [address] 07/24/2021 10:00:19 07/25/2021 09:19:16 Contraception care management 148281984 Z30.9 [id number] Angie RAMILA Hoff [facility] [address],[place] [address] 09/28/2021 17:03:36 09/28/2021 17:57:43 Contraception care management 140252572 Z30.9 Discussed all control options in great detail. Pt would like to start twirla patch. She is aware of the risks and benefits. Informed her it may not be as effective for contracept ion since her weight is over 198 lbs. She does not have any medical condition that is contraindi cated with the use of estrogen containing control. Pt will place the patch on the first saturday following the start of her period and then replace weekly x 2 (total of 3 patches over 3 weeks) and week 4 no patch. She is aware it is not effective for control the first month and may be less effective d/t her weight. She is also aware that she will need to check placement daily to ensure it has not come off. Encouraged use of condoms as the patch does not protect against STD's. Will return in 3 months for med check. Consent was read and signed. Pt verbalized understand ing. Risk of patch (DVT/PE, Stroke, etc) discussed and accepted by patientBP today 122/82Pati ent states BP has been normal for the past year with her PCPDenies any medical issues or hxSamples of twirla given to patient x 3 monthsPati ent due for next Depo injection on 10/09/21, can start and place patch on 10/09/21RTC for med check in 2 monthsPati ent to monitor for any signs of elevated BP, VTE, etcPatient to update PCP with control change Time spent in visit is a total of 25 mins with at least 50% of visit consisting of counseling and review of plan of care. [id number] RAMILA Kim [facility] [address],[facility] [place] [address] 12/28/2021 15:00:34 12/28/2021 15:29:27 Contraception care management 258421549 Z30.9 Patient is here today for a medicaton check of control. She voices goals of therapy have been met with use of this therapy. She denies neg side effects. She is eating, drinking, sleeping well; moods are stable & periods are well regulated. Wishes to continue this method of BC. Appropriat e to continue this medication . Happy with twirlaRx sent to patient pharmacyR/ B discussed and accpeted by patientC for WWE or sooner if needed [id number] RAMILA Kim [place] [address] [address] 05/28/2022 12:02:01 05/29/2022 16:48:20 Gynecologic examination 36746485 Z01.419 Take Calcium with Vitamin D 1200mg daily if not receiving in daily diet. It is strongly advised to have an annual flu shot and up can obtain at most pharmacies . If you have not had a TDap shot in the last 10 years you should obtain one as well. Discussed with patient & provided with informatio n regarding Gardisil vaccine to prevent the 4 strains for HPV that cause cervical cancer if under age 26. Encourage safe sexual practices, to use condoms and limit partners if not already in a monogamous relationsh ip. Do monthly self breast exams. Have mammogram yearly or every other year depending on family history. BRCA testing is now available for patients with strong genetic history of female cancer. If interested contact the office. Engage in daily exercise of low impact aerobic exercise 45-60 minutes 4-5 times weekly. Avoid tobacco and illicit drugs as well as using moderation with alcohol intake less than 1-2 8 oz beverages daily. This lifestyle behavior pattern will lead to less health conditions and longer life span. If BMI greater than 25 weight watchers or dietary consult advised. Patient received above instructio ns, and questions have been answered. If you have any questions please call or respond to this email. Patient was made aware of the patient portal and may obtain a paper copy of today's plan if desired. WWEBC - Patch. Happy with this method. Denies any contraindi cations. 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 She has a counseling appointmen t this week. Denies ever having thoughts of harming herself or other individual s.She has become physical with her dog at times. She does not have any family or friends who will take the dog for her. Discussed resources of where she can take the dog (animal retirement/[employer]). Patient verbalized understand ing. She states she knows somewhere safe where she can take the dog today.ED precaution s discussed - if thoughts of harming herself or others ever occur, call 911/seek help immediatel y.EPDS 11 Time spent in visit is a total of 40 mins with at least 50% of visit consisting of counseling and review of plan of care. Outbursts of anger [id number] R45.4 [id number] RAMILA Kim Clarkia [address] [address] 07/10/2022 12:32:23 07/10/2022 14:24:59 Vaginitis [id number] N76.0 Suspect BV on examvagini tis panel sentSTI endocervic al testing sentvulvar care guidelines discussedU PT (-)Rx sent, R/B/A discussedC ontinue to track periods, if spotting continues with patch RTC for further evaluation . Encouraged to stick with patch schedule.R TC if symptoms persist Time spent in visit is a total of 25 mins with at least 50% of visit consisting of counseling and review of plan of care. Irregular periods [id number] N92.6 Venereal d isease screening [id number] Z11.3 Health Concerns Section Related Observation LastModified by Organization Detai ls LastModified Time None Recorded Concern Status LastModified by Organization Details LastModified Time None Recorded Advance Directives Directive None Recorded Payers Encounter Date Sequence Insurance Name Policy Number Policy Reis Covered Member ID Reis Member ID Guarantor Name 07/24/2021 1 [facility] (MEDICAID HMO) [id number] Macy Ayana [id number] Macy Ayana 09/28/2021 1 [facility] (MEDICAID HMO) [id number] Macy Ayana [id number] Macy Ayana 12/28/2021 1 [facility] (MEDICAID HMO) [id number] Macy Ayana [id number] Macy Ayana 05/28/2022 1 [facility] (MEDICAID HMO) [id number] Macy Ayana [id number] Macy Aynaa 07/10/2022 1 [facility] (MEDICAID HMO) [id number] Macy Ayana [id number] Macy Ayana Notes Date Note Type Note Provider Name and Address Organization Details Recorded Time 09/28/2021 text/html Here today to discuss changing control method.Currently using Depo-Provera, next injection due 10/09-10/23Vaginal delivery almost one year ago, patient is not breastfeedingDoes not desire to use this method anymore, states she never wanted to use this method but had slightly elevated BP at her visit and a few elevated BP readings during , seen cardiology during for SOB, was cleared by cardiology per patient and symptoms resolved.Patient states BP has been normal ever sinceDenies hx of DVT/PE, stroke/NM, liver disease, cancer, migraine with auraShe denies any medical issues or medication useShe would like to use the patch, is not interested in any other method RAMILA Kim [address], [place], [address], [facility] 09/28/2021 17:55:26 12/28/2021 text/html 21yo presents fo r med checkOn twirla BC patchesHappy with this methodNo issuesLight menses RAMILA Kim [address], [place], [address], [facility] 12/28/2021 15:26:41 05/28/2022 text/html Annual GYNReport ed bypatient.Menstrual cycle:Normal menses Urinary symptoms:No hematuria; No incontinence Vulva:No genital lesion Vagina:Normal vaginal discharge Breast:No breast pain; No breast lump; No nipple discharge Current Contraception:Satis fied with current contraception; Transdermal patch Sexual complaints:No sexual complaints; No pain during intercourse; Normal libido Menopausal Symptoms:No menopausal symptoms; Normal vaginal lubrication Psychological symptoms:No depression; No anxiety; No PMDD Preventive measures:Encourage self breast examination; Encourage regular exercise; Encourage no tobacco use; Encourage regular mammograms starting age 40 RAMILA Kim [address], [place], [address], [facility] 05/28/2022 16:04:34 07/10/2022 text/html 22yopresents for evaluation of brown vaginal discharge, present for the past 2-3 weeksTwirla for BC, happy with this method. Has been on schedule with patch changes, currently in her patch free week.Denies any odors, itching, irritation, or painno urinary symptomsSA with steady partnerhx of vitiligo involving the vulva, breast, and axilla RAMILA Kim [address], [place], [address], [facility] 07/10/2022 14:13:26 OBGyn Episode Ob Episode Information Episode Created Date Number of Fetuses Patient Bloodtype Patient rh Status Prepregnancy Weight lbs Domestic Partner Domestic Partner Phone Father Name Pvc Monitor Status 05/04/19 21 1 A Negative 129 CLOSED Fetus Data First Name Last Name Admitted to NICU Weight (g) Sex Living Outcome Pediatric Complications Fetus ID Race Codes Race Delivery Type 1757.66 9 F true Prematur e 7816 Vaginal Delivery Problems Problem Notes 07/27 Cardiology will fax cons ult note Pt will continue NST & wkly OB appt here on Tuesdays & NST, U/S & MCA Doppler with MFM on Fridays starting 10/14 per PAULO Ann SSNanda M10/04- Appts canceled here, getting u/s & NST at [facility] that day10/04 Per Marissa [facility] start next week pt will come here for NST & Ob appt. pt will go [facility] Saturday's for NST, BPP, MCA Dopplers. pt will cancel all saturday appts Problem Name Start Date End Date Resolution Snomed Code Not e growth restriction 09/19/2020 [id number] IUGR - [facility] 08/24 8 <3% 10/04 u/s and NST MFM U/S & NST 10/14 10:30 RhD negative [id number] Rhogam Alpha-fetoprotein above reference range 05/30/2020 [id number] Geneti c Counseling 06/21/20 0900 - MFM rec serial growth u/s no further f/u per MFM growth at 28wks & wkly NST & BPP at 32wks Tachycardia [id number] w/ SOB - [facility] cardiology appt 06/22/20. BGF/U appt on 09/28- sxs resolved can f/u with PCP David Calculation Initial David Date Initial Exam Date Initial Exam Provider Initial Ultrasound Date Last Menstrual Period Date Ultra Sound Weeks Gestation 11/11/2020 05/04/2020 04/06/2020 02/05/2020 8 Eighteen To Twenty Week David Update Ultra Sound Date Fundal Height At Umbil Quickening Date Ultra Sound Latest Weeks Gestation Final David Confirmed By Final David Confirmed Date Final David Date Ultra Sound Latest Days Gestation 0 [email or web address] 05/26/2020 11/12/19 21 0 Pre- Flowsheet Flowsheet Date 04/06/2020 Zhang Score Blood Edema Fundus Height Fundus Units Glucose Ketones Leukocytes Nitrite Labor Signs Protein Cervic Dilation Cervic Effacement Cervic Station Type Weight in lbs Pre/Post Dialysis Refused BP Diastolic BP Location Tested BP Systolic BP Type Fetus Heart Rate Present Fetus Movement Comments Flowsheet Date 05/04/2020 Zhang Score Blood Edema Fundus Height Fundus Units Glucose Ketones Leukocytes Nitrite Labor Signs Protein Cervic Dilation Cervic Effacement Cervic Station 12 Type Weight in lbs Pre/Post Dialysis Refused Weight 131.581932469806 BP Diastolic BP Location Tested BP Systolic BP Type 83 R arm 119 sitting Fetus Heart Rate Present A 156 Fetus Movement Comments this patient is a 20-year-ol d 1 at 12 weeks gestation who presents for initial care. She is going to have genetic testing, she has an unremarkable medical and obstetric history. She had a 12 week ultrasound was normal. She will follow-up in 4 weeks. Flowsheet Date 05/17/2020 Zhang Score Blood Edema Fundus Height Fundus Units Glucose Ketones Leukocytes Nitrite Labor Signs Protein Cervic Dilation Cervic Effacement Cervic Station Type Weight in lbs Pre/Post Dialysis Refused Weight 133.469238371908 BP Diastolic BP Location Tested BP Systolic BP Type 72 R arm 111 sitting Fetus Heart Rate Present Fetus Movement Comments Flowsheet Date 05/30/2020 Zhang Score Blood Edema Fundus Height Fundus Units Glucose Ketones Leukocytes Nitrite Labor Signs Protein Cervic Dilation Cervic Effacement Cervic Station none neg Type Weight in lbs Pre/Post Dialysis Refused Weight 131.983506421424 BP Diastolic BP Location Tested BP Systolic BP Type 73 117 Fetus Heart Rate Present A 141 Fetus Movement A No Comments Doing better. Still taking z ofran prn. Will draw afp/cf/sma today. RTC in 4 weeks. Flowsheet Date 06/27/2020 Zhang Score Blood Edema Fundus Height Fundus Units Glucose Ketones Leukocytes Nitrite Labor Signs Protein Cervic Dilation Cervic Effacement Cervic Station 21 trace Type Weight in lbs Pre/Post Dialysis Refused Weight 134.206660249172 BP Diastolic BP Location Tested BP Systolic BP Type 80 R arm 128 sitting Fetus Heart Rate Present A 145 Fetus Movement A Yes Comments Shortness of breath and tach ycardia symptoms diminished. Has Holter monitor and follow-up with Cardiology. Had level 2 ultrasound with M, has follow-up with M. Flowsheet Date 07/28/2020 Zhang Score Blood Edema Fundus Height Fundus Units Glucose Ketones Leukocytes Nitrite Labor Signs Protein Cervic Dilation Cervic Effacement Cervic Station 25 trace Type Weight in lbs Pre/Post Dialysis Refused Weight 146.944617177258 BP Diastolic BP Location Tested BP Systolic BP Type 77 R arm 120 sitting Fetus Heart Rate Present A 145 Fetus Movement A Yes Comments Flowsheet Date 08/16/2020 Zhang Score Blood Edema Fundus Height Fundus Units Glucose Ketones Leukocytes Nitrite Labor Signs Protein Cervic Dilation Cervic Effacement Cervic Station Type Weight in lbs Pre/Post Dialysis Refused BP Diastolic BP Location Tested BP Systolic BP Type Fetus Heart Rate Present Fetus Movement Comments Flowsheet Date 08/16/2020 Zhang Score Blood Edema Fundus Height Fundus Units Glucose Ketones Leukocytes Nitrite Labor Signs Protein Cervic Dilation Cervic Effacement Cervic Station neg none 25 trace Type Weight in lbs Pre/Post Dialysis Refused Weight 150.083657177605 BP Diastolic BP Location Tested BP Systolic BP Type 80 117 Fetus Heart Rate Present A 140 Fetus Movement A Yes Comments Doing well. GCT today. Gaine d 5# this month- she thought it was 20#. US today EFW 14%, HAY 10, normal dopplers. Repeat growth 4 weeks. No further MFM scheduled. Flowsheet Date 09/01/2020 Zhang Score Blood Edema Fundus Height Fundus Units Glucose Ketones Leukocytes Nitrite Labor Signs Protein Cervic Dilation Cervic Effacement Cervic Station 26 Type Weight in lbs Pre/Post Dialysis Refused Weight 150.649226875296 BP Diastolic BP Location Tested BP Systolic BP Type 80 119 Fetus Heart Rate Present A 147 Fetus Movement A Yes Comments Flowsheet Date 09/15/2020 Zhang Score Blood Edema Fundus Height Fundus Units Glucose Ketones Leukocytes Nitrite Labor Signs Protein Cervic Dilation Cervic Effacement Cervic Station Type Weight in lbs Pre/Post Dialysis Refused BP Diastolic BP Location Tested BP Systolic BP Type Fetus Heart Rate Present Fetus Movement Comments Flowsheet Date 09/15/2020 Zhang Score Blood Edema Fundus Height Fundus Units Glucose Ketones Leukocytes Nitrite Labor Signs Protein Cervic Dilation Cervic Effacement Cervic Station Type Weight in lbs Pre/Post Dialysis Refused BP Diastolic BP Location Tested BP Systolic BP Type Fetus Heart Rate Present Fetus Movement Comments Flowsheet Date 09/15/2020 Zhang Score Blood Edema Fundus Height Fundus Units Glucose Ketones Leukocytes Nitrite Labor Signs Protein Cervic Dilation Cervic Effacement Cervic Station trace Type Weight in lbs Pre/Post Dialysis Refused Weight 150.577312196612 BP Diastolic BP Location Tested BP Systolic BP Type 79 R arm 126 sitting Fetus Heart Rate Present Fetus Movement A Yes Comments Growth concern, growth herr ed from 15th percentile to 5th. To see Maternal- Medicine. Reassuring testing today. Flowsheet Date 09/20/2020 Zhang Score Blood Edema Fundus Height Fundus Units Glucose Ketones Leukocytes Nitrite Labor Signs Protein Cervic Dilation Cervic Effacement Cervic Station Type Weight in lbs Pre/Post Dialysis Refused BP Diastolic BP Location Tested BP Systolic BP Type Fetus Heart Rate Present Fetus Movement Comments Flowsheet Date 09/20/2020 Zhang Score Blood Edema Fundus Height Fundus Units Glucose Ketones Leukocytes Nitrite Labor Signs Protein Cervic Dilation Cervic Effacement Cervic Station neg none 28 trace Type Weight in lbs Pre/Post Dialysis Refused Weight 150.720915641475 BP Diastolic BP Location Tested BP Systolic BP Type 76 117 Fetus Heart Rate Present A 135 Fetus Movement A Yes Comments Doing ok. Good FM. IUGR 3%. NST NR this am, BPP /. HAY 8. Per pt not returning to M until 10/04. Will figure out if supposed to be having dopplers done here. Discussed kick counts, possible delivery. Flowsheet Date 09/20/2020 Zhang Score Blood Edema Fundus Height Fundus Units Glucose Ketones Leukocytes Nitrite Labor Signs Protein Cervic Dilation Cervic Effacement Cervic Station Type Weight in lbs Pre/Post Dialysis Refused BP Diastolic BP Location Tested BP Systolic BP Type Fetus Heart Rate Present Fetus Movement Comments Flowsheet Date 09/23/2020 Zhang Score Blood Edema Fundus Height Fundus Units Glucose Ketones Leukocytes Nitrite Labor Signs Protein Cervic Dilation Cervic Effacement Cervic Station Type Weight in lbs Pre/Post Dialysis Refused BP Diastolic BP Location Tested BP Systolic BP Type 87 118 Fetus Heart Rate Present Fetus Movement Comments Flowsheet Date 09/23/2020 Zhang Score Blood Edema Fundus Height Fundus Units Glucose Ketones Leukocytes Nitrite Labor Signs Protein Cervic Dilation Cervic Effacement Cervic Station Type Weight in lbs Pre/Post Dialysis Refused BP Diastolic BP Location Tested BP Systolic BP Type Fetus Heart Rate Present Fetus Movement Comments Flowsheet Date 09/27/2020 Zhang Score Blood Edema Fundus Height Fundus Units Glucose Ketones Leukocytes Nitrite Labor Signs Protein Cervic Dilation Cervic Effacement Cervic Station Type Weight in lbs Pre/Post Dialysis Refused BP Diastolic BP Location Tested BP Systolic BP Type Fetus Heart Rate Present Fetus Movement Comments Flowsheet Date 09/27/2020 Zhang Score Blood Edema Fundus Height Fundus Units Glucose Ketones Leukocytes Nitrite Labor Signs Protein Cervic Dilation Cervic Effacement Cervic Station Type Weight in lbs Pre/Post Dialysis Refused BP Diastolic BP Location Tested BP Systolic BP Type Fetus Heart Rate Present Fetus Movement Comments Flowsheet Date 09/27/2020 Zhang Score Blood Edema Fundus Height Fundus Units Glucose Ketones Leukocytes Nitrite Labor Signs Protein Cervic Dilation Cervic Effacement Cervic Station 32 trace Type Weight in lbs Pre/Post Dialysis Refused Weight 153.850131315809 BP Diastolic BP Location Tested BP Systolic BP Type 96 R arm 148 sitting 96 L arm 137 sitting 86 R arm 131 sitting 90 R arm 118 sitting Fetus Heart Rate Present A 140 Fetus Movement Comments Reviewed blood pressures, di scussed nonreactive NST, she will be placed back on the monitor. She has growth restriction and a abnormal fetoprotein from the genetic screening. she had a reactive nonstress test upon repeat. To follow-up in 4 days Flowsheet Date 09/30/2020 Zhang Score Blood Edema Fundus Height Fundus Units Glucose Ketones Leukocytes Nitrite Labor Signs Protein Cervic Dilation Cervic Effacement Cervic Station Type Weight in lbs Pre/Post Dialysis Refused BP Diastolic BP Location Tested BP Systolic BP Type 83 127 Fetus Heart Rate Present Fetus Movement Comments Flowsheet Date 10/07/2020 Zhang Score Blood Edema Fundus Height Fundus Units Glucose Ketones Leukocytes Nitrite Labor Signs Protein Cervic Dilation Cervic Effacement Cervic Station Type Weight in lbs Pre/Post Dialysis Refused BP Diastolic BP Location Tested BP Systolic BP Type Fetus Heart Rate Present Fetus Movement Comments Flowsheet Date 10/07/2020 Zhang Score Blood Edema Fundus Height Fundus Units Glucose Ketones Leukocytes Nitrite Labor Signs Protein Cervic Dilation Cervic Effacement Cervic Station Type Weight in lbs Pre/Post Dialysis Refused Weight 151.617066253045 BP Diastolic BP Location Tested BP Systolic BP Type 99 R arm 147 sitting 88 L arm 133 sitting 90 R arm 130 sitting 90 R arm 140 sitting Fetus Heart Rate Present Fetus Movement A Yes Comments NST R, bv elevated, asymptom atic, has dental infection, note for dental work given, antibiotics and pain medication, to le for bv workup due to IUGR suspect bp elevated louisa to dental pain Flowsheet Date 10/11/2020 Zhang Score Blood Edema Fundus Height Fundus Units Glucose Ketones Leukocytes Nitrite Labor Signs Protein Cervic Dilation Cervic Effacement Cervic Station Type Weight in lbs Pre/Post Dialysis Refused BP Diastolic BP Location Tested BP Systolic BP Type Fetus Heart Rate Present Fetus Movement Comments Flowsheet Date 10/11/2020 Zhang Score Blood Edema Fundus Height Fundus Units Glucose Ketones Leukocytes Nitrite Labor Signs Protein Cervic Dilation Cervic Effacement Cervic Station Type Weight in lbs Pre/Post Dialysis Refused BP Diastolic BP Location Tested BP Systolic BP Type Fetus Heart Rate Present Fetus Movement Comments Flowsheet Date 10/11/2020 Zhang Score Blood Edema Fundus Height Fundus Units Glucose Ketones Leukocytes Nitrite Labor Signs Protein Cervic Dilation Cervic Effacement Cervic Station 34 trace Type Weight in lbs Pre/Post Dialysis Refused Weight 152.535449075551 BP Diastolic BP Location Tested BP Systolic BP Type 89 R arm 139 sitting 80 R arm 128 sitting Fetus Heart Rate Present A 145 Fetus Movement A Yes Comments NST reviewed, BPP normal, th ere appears to be reassuring status at this time. Follow up with MFM in 3 days. Menstrual History Last Menstrual Date Menses Monthly On Bcp Conception Prior Menses Frequency Hcg Plus Date Menarche Onset Age 1102/05/2020 Genetic Screening And Infection History Question Response Note Mental Retardation/Autism false Patient's Age Will Be 35 Years Or Older At Estim ated Date of Delivery false Thalassemia (Ecuadorean, Telugu, Mediterranean, Or Background): MCV < 80 false Neural Tube Defect (Meningomyelocele, Spina Bifi da, Or Anencephaly) false Congenital Heart Defect false Down Syndrome false Fahad-Sachs (eg, Roman Catholic, Cajun, Arabic-Motley) f alse Corby Disease false Sickle Cell Disease Or Trait () false Hemophilia Or Other Blood Disorders false Muscular Dystrophy false Cystic Fibrosis false Pine's Chorea false Intellectual Disability/Autism false If Yes, Was Person Tested For Fragile X? false Other Inherited Genetic Or Chromosomal Disorder false Maternal Metabolic Disorder (eg, Type 1 Diabetes , PKU) false Patient Or Baby's Father Had A Child With Defects Not Listed Above false Recurrent Loss, Or A Stillbirth false Medications (including Suppl ements, Vitamins, Herbs, OTC Drugs), Illicit/Recreational Drugs, Alcohol false If Yes, Agent(s) And Strength/Dosage false Any Other Genetic History false Live With Someone With TB Or Exposed To TB false Patient Or Partner Has History Of Genital Herpes false Rash Or Viral Illness Since Last Menstrual Perio d false History Of STD, Gonorrhea, Chlamydia, HPV, Syphi lis false Other Infection History false History of HIV false History of Hepatitis false Prior GBS-infected child false Hemoglobinopathy Or Carrier false Other Structural Defect false Recent Travel History Outside of Country false Delivery Information Delivery Date Delivery Type Labor Anesthesia Weeks Gestation Incision Type Labor Labor Length Hrs Delivered By Post Complications Tubal Sterilization Discharge Date Comments 1 Induce d Regional-Ep idural 36.1 true Zarina Ibrahim CNM IUGR & Cholestas is & Gbs Unknown & GHTN Discharge Information Feeding Method Contraceptive Method Maternal HG B and HCT Levels
== END 2024-04-12 13:47 | disposition home or self-care (01) ==
PROVIDERS: Preventive Medicine Aerospace Medicine; Emergency Provider Emergency Medicine; PCP Family Medicine
DX: R11.2 Nausea with vomiting, unspecified (principal)
CPT/HCPCS: 36415; 80053; 81001; 81025; 83690; 84703; 85025; 96361; 96374; 99284; J2405; J7030